=== PATIENT | male | born 1960 | race Caucasian/White ===

== ENCOUNTER 2019-03-17 09:21 | Inpatient (IN) | payer MEDICARE ==
[~2019-03-17] VITALS: Ht 182.9 cm; Wt 75.5 kg
[~2019-03-17 09:21] MED LIST: CELEXA20 MG PO; CIPRO500 MG PO; COMBIVENT RESPIM4 GM INH; HYDROCODON-ACE1 EAC7 PO; HYDROCODONE-APA1 TAB PO; LIBRIUM25 MG PO; LISINOPRIL10 MG PO; MUCINEX600 MG PO; NAPROSYN500 MG PO; PERFOROMIS20 MCG/21 INH; PULMICORT0.5 MG/21 NEB; RISPERDAL1 MG PO; SPIRIVA18 MCG; THERMOTABS 1 GM1 GM PO; TUDORZA PRESS400 MCG INH; ULTRAM50 MG PO; VITAMIN B-1100 M1 PO; XOPENEX 1.1.25 MG/3 UPD
[2019-03-17 10:24] LABS: ALBUMIN 3.4 g/dL (3.4-5.0); ALKALINE PHOSPHATASE 83 U/L (46-116); ALT (SGPT) 15 U/L (10-68); BILIRUBIN - TOTAL 0.92 mg/dL (0.2-1.3); CALC OSMOLALITY 281 mosm/kg (275-300); CALCIUM 8.8 mg/dL (8.5-10.1); CARBON DIOXIDE 32.4 mmol/L (21.0-32.0); CHLORIDE - SERUM 103 mmol/L (98-107); CREATININE - SERUM 0.9 mg/dL (0.6-1.3); POTASSIUM - SERUM 3.3 mmol/L (3.5-5.1); PROTEIN - SERUM 6.9 g/dL (6.4-8.2); SODIUM 141 mmol/L (136-145); UREA NITROGEN 14 mg/dL (7-18); eGFR NON AFRICAN AMERICAN > 90 mL/min (90-120)
[2019-03-17 10:25] LABS: GLUCOSE 98 mg/dL (74-106)
[2019-03-17 10:28] LABS: AMYLASE - SERUM 43 U/L (25-115); LIPASE 91 U/L (73-393); TROPONIN-I < 0.017 ng/mL (0.000-0.060)
[2019-03-17 10:30] LABS: HEMATOCRIT 45.9 % (42.0-54.0); HEMOGLOBIN 15.8 g/dL (13.5-17.5); LYMPHOCYTES 15.8 % (15-50); MCH 28.6 pg (26.0-34.0); MCHC 34.4 g/dL (31.0-37.0); MCV 83.2 fL (80.0-100.0); MEAN PLATELET VOLUME 8.8 fL (7.4-10.4); NEUTROPHILS 77.2 % (40-80); PLATELET COUNT 189 10x3/uL (130-400); RBC 5.52 10x6/uL (4.20-6.10); RDW 13.3 % (11.5-14.5); WBC 11.8 10x3/uL (4.8-10.8)
[2019-03-17 11:00] VITALS: BP 109/64
[2019-03-17 11:31] LABS: INR 1.13 (0.85-1.17)
[2019-03-17 12:00] VITALS: BP 110/67
[2019-03-17 12:19] LABS: APPEARANCE CLEAR (CLEAR); BILIRUBIN NEGATIVE (NEGATIVE); COLOR YELLOW (YELLOW); GLUCOSE NEGATIVE (NEGATIVE); KETONE NEGATIVE (NEGATIVE); NITRITE NEGATIVE (NEGATIVE); PROTEIN NEGATIVE (NEGATIVE); UROBILINOGEN NORMAL (NORMAL)
[2019-03-17 13:00] VITALS: BP 108/65
[2019-03-17 14:00] VITALS: BP 106/63
--- NOTE | 2019-03-17 16:00 | NUR ---
PT RECIEVED VIA WHEELCHAIR. ALERT AND ORIENTED. NO DISTRESS NOTED. VSS AT THIS TIME. WILL CONTINUE TO MONITOR.
[2019-03-17 17:19] VITALS: BP 109/80; BMI 22.7
--- NOTE | 2019-03-17 20:07 | NUR ---
REPORT RECIEVED. PT UP ABLIB IN HALLWAY. NO S/S OF DISTRESS. BREATHING EVEN AND UNLABORED. CALL LIGHT WITHIN REACH. BED IN LOWEST POSTION. WILL CONT WITH POC.
[2019-03-17 20:32] VITALS: BP 116/95
--- NOTE | 2019-03-18 00:30 | NUR ---
PT UP IN HALLWAY WALKING. NO S/S OF DISTRESS. BREATHING EVEN AND UNLABORED. PT DENIES ANY NEEDS AT THIS TIME. TELEMETRY PLACED AT THIS TIME. PT RUNNING SR @ 86 BPM.
--- NOTE | 2019-03-18 03:32 | NUR ---
PT IS UP WALKING IN HALLWAY. NO S/S OF DISTRESS. BREATHING EVEN AND UNLABORED. PT DENIES ANY NEEDS AT THIS TIME. WILL CONT WITH POC.
[2019-03-18 06:04] VITALS: BP 116/73
--- NOTE | 2019-03-18 06:28 | NUR ---
PT SEMI FOWLERS IN BED. PT RESTING AT THIS TIME. PIV PATENT, NS @ 125ML/HR. NO S/S OF DISTRESS. BREATHING EVEN AND UNLABORED. CALL LIGHT WITHIN REACH. BED IN LOWEST POSITION. WILL CONT WITH POC.
--- NOTE | 2019-03-18 07:13 | NUR ---
PT AMBULATING IN HALLWAY. ALERT AND ORIENTED. RR EVEN AND UNLABORED. WILL CONTINUE TO MONITOR.
[2019-03-18 07:50] VITALS: BP 106/63
--- NOTE | 2019-03-18 09:58 | MORECARE ---
CASE MANAGEMENT DISCHARGE SUMMARY PATIENT: DIANE MARCIAL JR UNIT: [id number] ADM DATE: 03/17/19 AGE: 58 : 56 SEX: M ROOM/BED: D.1211 AUTHOR: TIMMY VERDIN PHYSICIAN: REFERRING PHYSICIAN: ESTEVAN CRAFT MD DATE OF SERVICE: 03/18/19 Discharge Plan Patient Name: DIANE MARCIAL Facility: [facility]:[place] : 1960 Planned Disposition: Home Anticipated Discharge Date: Discharge Date: Expected LOS: Initial Reviewer: [email or web address] Initial Review Date: 03/18/2019 Generated: 03/18/19 10:57 am Patient Name: DIANE MARCIAL Page [id number] at 0958 All edits/amendments must be made on the electronic document DICTATION DATE: 03/18/19956 COMMUNITY DIRECTOR: BOB 03/18/1959 RPT#: [id number] DC DATE: STATUS: ADM IN [facility] [address] [place] [address] END OF REPORT
--- NOTE | 2019-03-18 10:00 | NUR ---
I have reviewed this patient and I concur with the Shift Assessment completed by the Licensed Practical Nurse today this shift.
--- NOTE | 2019-03-18 10:05 | MORECARE ---
CASE MANAGEMENT DISCHARGE SUMMARY PATIENT: DIANE MARCIAL JR UNIT: [id number] ADM DATE: 03/17/19 AGE: 58 : 56 SEX: M ROOM/BED: D.1211 AUTHOR: LAMBERT,DOC PHYSICIAN: REFERRING PHYSICIAN: ESTEVAN CRAFT MD DATE OF SERVICE: 03/18/19 Discharge Plan Patient Name: DIANE MARCIAL Facility: [facility]:[place] : 1960 Planned Disposition: Home Anticipated Discharge Date: Discharge Date: Expected LOS: Initial Reviewer: [email or web address] Initial Review Date: 03/18/2019 Generated: 03/18/19 11:05 am Comments DCP- Discharge Planning Updated by [email or web address]: Jocelyn Mcwilliams on 03/18/19 9:[address] Patient Name: DIANE MARCIAL Admission Status: ER Accout number: [id number] Admission Date: 03-17-2019 : 1960 Admission Diagnosis: Attending: PHYLLIS CRAFT Current LOS: 1 Anticipated DC Date: Planned Disposition: Home Primary Insurance: MEDICARE A & B Discharge Planning Comments: CM met with patient to complete initial dc planning assessment. CM educated patient on the CM role and verbal consent given by patient to complete assessment. CM verified patient's address, phone number, and emergency contact phone numbers. Patient lives at home alone and reports he is independent in his care. At discharge patient plans to return home and feels this is a safe discharge. CM discussed availability of home health, rehab services, and medical equipment. Patient denied known discharge needs at this time.. . CM will continue to follow and will assist as needed with dc plans/needs. Flat Hammerer: Jocelyn Mcwilliams DCPIA - Discharge Planning Initial Assessment Updated by [email or web address]: Jocelyn Mcwilliams on 03/18/19 10:02 am * Is the patient Alert and Oriented? Yes * How many steps to enter\exit or inside your home? * PCP dulce * Pharmacy [facility] * Preadmission Environment Home with Family * ADLs Independent * Verbal permission to speak to the caregivers and representatives has been obtained from the patient. N/A * Additional services required to return to the preadmission environment? No * Can the patient safely return to the preadmission environment? Yes * Has this patient been hospitalized within the prior 30 days at any hospital? No Last DP export: 03/18/19 8:58 a Patient Name: DIANE MARCIAL Page [id number] at 1005 All edits/amendments must be made on the electronic document DICTATION DATE: 03/18/19 1005 RAG CUTTING MACHINE TENDER: BOB 03/18/19 1005 RPT#: [id number] DC DATE: STATUS: ADM IN [facility] [address] [place] [address] END OF REPORT
[2019-03-18 11:30] VITALS: BP 125/77
[2019-03-18 13:32] LABS: HEMATOCRIT 43.7 % (42.0-54.0); HEMOGLOBIN 15.2 g/dL (13.5-17.5)
--- NOTE | 2019-03-18 13:46 | NUR ---
PT AMBULATING HALLWAY. DENIES NEEDS OR PAIN AT THIS TIME. RR EVEN AND UNLABORED.
[2019-03-18 14:11] VITALS: Ht 182.9 cm; Wt 75.5 kg
--- NOTE | 2019-03-18 19:12 | NUR ---
REPORT REC'D. PT SUPINE IN BED RESTING. NO S/S OF DISTRESS. BREATHING EVEN AND UNLABORED. PIV PATENT AND INTACT RT AC SL AT THIS TIME. PT DENIES ANY NEEDS AT THIS TIME. CALL LIGHT WITHIN REACH. BED IN LOWEST POSITION. WILL CONT WITH POC.
[2019-03-18 19:30] VITALS: BP 116/74
[2019-03-19] VITALS: BP 99/61
[2019-03-19 04:43] VITALS: BP 144/67
--- NOTE | 2019-03-19 06:23 | NUR ---
PT AWAKE SITTING IN BED. NO S/S OF DISTRESS. BREATHING EVEN AND UNLABORED. PIV PATENT AND INTACTED. NS @ 125. PT DENIES ANY NEEDS AT THIS TIME. CALL LIGHT WITHIN REACH. BED IN LOWEST POSITION. WILL CONT POC.
--- NOTE | 2019-03-19 07:22 | NUR ---
PT RESTING, EYES CLOSED. RR EVEN AND UNLABORED. NO DISTRESS NOTED. WILL CONTINUE TO MONITOR.
[2019-03-19 10:31] LABS: BASOPHILS 0.1 % (0-2); EOSINOPHILS 5.9 % (0-7); HEMATOCRIT 43.2 % (42.0-54.0); HEMOGLOBIN 14.9 g/dL (13.5-17.5); IMMATURE GRANULOCYTES 0.1 % (0-5); LYMPHOCYTES 18.1 % (15-50); MCHC 34.5 g/dL (31.0-37.0); MONOCYTES 8.6 % (2-11); NEUTROPHILS 67.2 % (40-80); PLATELET COUNT 161 10x3/uL (130-400); RBC 5.14 10x6/uL (4.20-6.10); RDW 13.5 % (11.5-14.5); WBC 8.5 10x3/uL (4.8-10.8)
[2019-03-19 10:46] LABS: CALC OSMOLALITY 278 mosm/kg (275-300); CARBON DIOXIDE 32.2 mmol/L (21.0-32.0); CHLORIDE - SERUM 105 mmol/L (98-107); CREATININE - SERUM 0.9 mg/dL (0.6-1.3); GLUCOSE 89 mg/dL (74-106); POTASSIUM - SERUM 3.7 mmol/L (3.5-5.1); SODIUM 142 mmol/L (136-145); UREA NITROGEN 4 mg/dL (7-18); eGFR NON AFRICAN AMERICAN > 90 mL/min (90-120)
[2019-03-19 11:36] VITALS: BP 112/75
[2019-03-19] MEDS ORDERED: LEVAQUIN750 MG PO (15:34)
[2019-03-19] MEDS ORDERED: FLAGYL500 MG PO (15:35)
[2019-03-19] MEDS ORDERED: MIRALAX17 GM PO (15:36)
[2019-03-19] MEDS ORDERED: FLORAJEN3 CAPS460 MG PO (15:36)
--- NOTE | 2019-03-19 16:39 | NUR ---
IV INFILTRATED. D/C WITH CATHETER TIP INTACT. DRESSING CDI
--- NOTE | 2019-03-19 17:28 | NUR ---
D/C INSTRUCTONS REVIEWED WITH PT. VERBALIZES UNDERSTANDING AND NO FURTHER QUESTIONS ASKED. PT WAITING ON RIDE. TELEMETRY REMOVED AND SENT BACK TO MONITORS.
--- NOTE | 2019-03-19 18:25 | NUR ---
PT D/C PER PERSONAL VEHICHLE VIA WHEELCHAIR. ALL BELONGINGS SENT WITH PT. MEDICATIONS WILL BE SENT TO PT PREFERED PHARMACY IN AM. TELEMETRY REMOVED AND SENT TO MONITORS.
--- NOTE | 2019-03-19 18:32 | MORECARE ---
CASE MANAGEMENT DISCHARGE SUMMARY PATIENT: DIANE MARCIAL JR UNIT: [id number] ADM DATE: 03/17/19 AGE: 58 : 56 SEX: M ROOM/BED: D.1211 AUTHOR: LAMBERT,DOC PHYSICIAN: REFERRING PHYSICIAN: ESTEVAN CRAFT MD DATE OF SERVICE: 03/19/19 Discharge Plan Patient Name: DIANE MARCIAL Facility: [facility]:[place] : 1960 Planned Disposition: Home Anticipated Discharge Date: Discharge Date: 03/19/2019 Expected LOS: Initial Reviewer: [email or web address] Initial Review Date: 03/18/2019 Generated: 03/19/19 7:32 pm Comments DCP- Discharge Planning Updated by [id number]: Jocelyn Mcwilliams on 03/18/19 9:[address] Patient Name: DIANE MARCIAL Admission Status: ER Accout number: [id number] Admission Date: 03-17-2019 : 1960 Admission Diagnosis: Attending: PHYLLIS CRAFT Current LOS: 1 Anticipated DC Date: Planned Disposition: Home Primary Insurance: MEDICARE A & B Discharge Planning Comments: CM met with patient to complete initial dc planning assessment. CM educated patient on the CM role and verbal consent given by patient to complete assessment. CM verified patient's address, phone number, and emergency contact phone numbers. Patient lives at home alone and reports he is independent in his care. At discharge patient plans to return home and feels this is a safe discharge. CM discussed availability of home health, rehab services, and medical equipment. Patient denied known discharge needs at this time.. . CM will continue to follow and will assist as needed with dc plans/needs. Medical Technician Assistant: Jocelyn Mcwilliams DCPIA - Discharge Planning Initial Assessment Updated by [email or web address]: Jocelyn Mcwilliams on 03/18/19 10:02 am * Is the patient Alert and Oriented? Yes * How many steps to enter\exit or inside your home? * PCP udlce * Pharmacy [facility] * Preadmission Environment Home with Family * ADLs Independent * Verbal permission to speak to the caregivers and representatives has been obtained from the patient. N/A * Additional services required to return to the preadmission environment? No * Can the patient safely return to the preadmission environment? Yes * Has this patient been hospitalized within the prior 30 days at any hospital? No Last DP export: 03/18/19 9:05 a Patient Name: DIANE MARCIAL Page [id number] at 1832 All edits/amendments must be made on the electronic document DICTATION DATE: 03/19/191831 GLAZE SUPERVISOR: BOB [birth year]191831 RPT#: [id number] DC DATE:03/19/19 STATUS: DIS IN [facility] [address] [place] [address] END OF REPORT
== END 2019-03-19 18:14 | disposition home or self-care (01) | DRG 392 ==
LOC: D.ER 09:21 → D.M3 15:03
PROVIDERS: Family Medicine; ADMIT Emergency Medicine; ATTEND Emergency Medicine
DX: K59.00 Constipation, unspecified (principal); J43.9 Emphysema, unspecified; F32.9 Major depressive disorder, single episode, unspecified; F20.9 Schizophrenia, unspecified; F41.9 Anxiety disorder, unspecified; G89.29 Other chronic pain; M54.9 Dorsalgia, unspecified; R19.5 Other fecal abnormalities; K52.9 Noninfective gastroenteritis and colitis, unspecified; K62.89 Other specified diseases of anus and rectum

== ENCOUNTER 2019-04-03 17:54 | Inpatient (IN) | payer MEDICARE, MEDICAID ==
[~2019-04-03] VITALS: Ht 182.9 cm; Wt 74.8 kg
[~2019-04-03 17:54] MED LIST changes: +FLAGYL500 MG PO; +FLORAJEN3 CAPS460 MG PO; +LEVAQUIN750 MG PO; +MIRALAX17 GM PO
--- NOTE | 2019-04-03 19:02 | NUR ---
REPORT GIVEN TO SANCHO Daniels RN, AT THIS TIME.
[2019-04-03 19:12] LABS: BASOPHILS 0.1 % (0-2); EOSINOPHILS 2.1 % (0-7); HEMATOCRIT 45.3 % (42.0-54.0); HEMOGLOBIN 15.8 g/dL (13.5-17.5); IMMATURE GRANULOCYTES 0.3 % (0-5); LYMPHOCYTES 13.5 % (15-50); MCH 28.8 pg (26.0-34.0); MCHC 34.9 g/dL (31.0-37.0); MCV 82.5 fL (80.0-100.0); MEAN PLATELET VOLUME 9.3 fL (7.4-10.4); MONOCYTES 11.4 % (2-11); NEUTROPHILS 72.6 % (40-80); PLATELET COUNT 167 10x3/uL (130-400); RBC 5.49 10x6/uL (4.20-6.10); RDW 14.4 % (11.5-14.5); WBC 15.7 10x3/uL (4.8-10.8)
[2019-04-03 19:18] VITALS: BP 97/54
[2019-04-03 19:45] LABS: ALBUMIN 3.3 g/dL (3.4-5.0); ALKALINE PHOSPHATASE 64 U/L (46-116); ALT (SGPT) 11 U/L (10-68); BILIRUBIN - TOTAL 0.84 mg/dL (0.2-1.3); CALC OSMOLALITY 277 mosm/kg (275-300); CALCIUM 8.9 mg/dL (8.5-10.1); CARBON DIOXIDE 28.1 mmol/L (21.0-32.0); CHLORIDE - SERUM 100 mmol/L (98-107); CREATININE - SERUM 0.8 mg/dL (0.6-1.3); GLUCOSE 84 mg/dL (74-106); PROTEIN - SERUM 6.3 g/dL (6.4-8.2); SODIUM 139 mmol/L (136-145); UREA NITROGEN 14 mg/dL (7-18); eGFR NON AFRICAN AMERICAN > 90 mL/min (90-120)
[2019-04-03 21:24] VITALS: BP 110/67
--- NOTE | 2019-04-03 22:05 | NUR ---
ZOSYN INFUSION COMPLETE AT THIS TIME.
[2019-04-03 23:34] VITALS: BP 103/66
--- NOTE | 2019-04-04 00:46 | NUR ---
VANC INFUSION COMPLETE AT THIS TIME.
[2019-04-04 01:49] VITALS: BP 94/50; BMI 22.4
[2019-04-04 04:00] VITALS: BP 108/65
[2019-04-04 05:10] LABS: BASOPHILS 0.2 % (0-2); EOSINOPHILS 4.7 % (0-7); HEMATOCRIT 41.9 % (42.0-54.0); HEMOGLOBIN 14.7 g/dL (13.5-17.5); IMMATURE GRANULOCYTES 0.2 % (0-5); LYMPHOCYTES 15.4 % (15-50); MCH 29.3 pg (26.0-34.0); MCHC 35.1 g/dL (31.0-37.0); MCV 83.6 fL (80.0-100.0); MEAN PLATELET VOLUME 9.4 fL (7.4-10.4); MONOCYTES 12.8 % (2-11); NEUTROPHILS 66.7 % (40-80); PLATELET COUNT 179 10x3/uL (130-400); RBC 5.01 10x6/uL (4.20-6.10); RDW 14.5 % (11.5-14.5); WBC 11.6 10x3/uL (4.8-10.8)
[2019-04-04 05:25] LABS: ALBUMIN 2.5 g/dL (3.4-5.0); ALKALINE PHOSPHATASE 53 U/L (46-116); ALT (SGPT) 10 U/L (10-68); BILIRUBIN - TOTAL 0.71 mg/dL (0.2-1.3); CALC OSMOLALITY 274 mosm/kg (275-300); CALCIUM 8.5 mg/dL (8.5-10.1); CARBON DIOXIDE 28.4 mmol/L (21.0-32.0); CHLORIDE - SERUM 103 mmol/L (98-107); CREATININE - SERUM 0.8 mg/dL (0.6-1.3); GLUCOSE 87 mg/dL (74-106); POTASSIUM - SERUM 3.5 mmol/L (3.5-5.1); PROTEIN - SERUM 5.8 g/dL (6.4-8.2); SODIUM 138 mmol/L (136-145); UREA NITROGEN 13 mg/dL (7-18); eGFR NON AFRICAN AMERICAN > 90 mL/min (90-120)
--- NOTE | 2019-04-04 06:44 | NUR ---
ENTERED PATIENTS ROOM AND PATIENT SITTING ON EDGE OF THE BED AND ACTING LIKE HE WAS GETTING UPSET. PATIENT PULLED OFF TELEMETRY LEADS AND REFUSED TO PUT BACK ON. PT BECOMING NON COMPLIANT AND SEEMS TO BE GETTING MORE AND MORE ANXIOUS.
--- NOTE | 2019-04-04 07:10 | NUR ---
PATIENT RECIEVED FROM PREVIOUS SHIFT RESTING IN BED. ADMITTED FOR [facility] WITH I&D SCHEDULED FOR TODAY. PATIENT IS NPO FOR PROCEDURE. MILD REDNESS AND EDEMA TO GENITAL AREAS. NO OPEN AREAS AT THIS TIME.
[2019-04-04 08:55] VITALS: BP 93/47
[2019-04-04 12:00] VITALS: BP 98/62
[2019-04-04 13:23] VITALS: Ht 182.9 cm; Wt 74.8 kg
[2019-04-04 15:07] VITALS: BP 102/52
--- NOTE | 2019-04-04 15:51 | NUR ---
PATIENT RETURNED FROM OR PROCEDURE, I&D RIGHT BUTTOCK. DRESSING C/D/I. 4MG MORPHINE GIVEN FOR PAIN.
--- NOTE | 2019-04-04 19:15 | NUR ---
RECEIVED CARE FROM DAY NURSE. LYING IN BED ON SIDE. EYES CLOSED. RESP EVEN AND UNLABORED. CALL LIGHT AT SIDE. IV INFUSING PER ORDER TO PATENT LEFT FA.
[2019-04-04 20:00] VITALS: BP 93/55
[2019-04-05] VITALS: BP 92/61
--- NOTE | 2019-04-05 03:00 | NUR ---
I have reviewed this patient and I concur with the Shift Assessment completed by the Licensed Practical Nurse today this shift.
[2019-04-05 04:00] VITALS: BP 96/55
[2019-04-05] MEDS ORDERED: VALIUM10 MG PO (05:28)
[2019-04-05] MEDS ORDERED: FLAGYL500 MG PO (05:49)
[2019-04-05] MEDS ORDERED: FOLIC ACID1 MG PO (05:50)
[2019-04-05] MEDS ORDERED: PREDNISONE10 MG PO (05:50)
[2019-04-05] MEDS ORDERED: PEPCID AC20 MG PO (05:51)
[2019-04-05] MEDS ORDERED: LINZESS145 MCG PO (05:51)
[2019-04-05] MEDS ORDERED: GEMFIBROZIL600 MG PO (05:51)
[2019-04-05] MEDS ORDERED: MOBIC7.5 MG PO (05:52)
[2019-04-05 06:46] LABS: BASOPHILS 0.1 % (0-2); EOSINOPHILS 0 % (0-7); HEMOGLOBIN 13.7 g/dL (13.5-17.5); IMMATURE GRANULOCYTES 0.2 % (0-5); LYMPHOCYTES 7.4 % (15-50); MCH 28.7 pg (26.0-34.0); MCHC 34.3 g/dL (31.0-37.0); MCV 83.9 fL (80.0-100.0); MEAN PLATELET VOLUME 9.2 fL (7.4-10.4); MONOCYTES 4.9 % (2-11); NEUTROPHILS 87.4 % (40-80); PLATELET COUNT 186 10x3/uL (130-400); RBC 4.77 10x6/uL (4.20-6.10); RDW 14.1 % (11.5-14.5); WBC 10.7 10x3/uL (4.8-10.8)
[2019-04-05 06:54] LABS: ANION GAP 11.4 mmol/L (8-16); CALCIUM 8.4 mg/dL (8.5-10.1); CARBON DIOXIDE 29.6 mmol/L (21.0-32.0)
[2019-04-05 06:58] LABS: CREATININE - SERUM 1.1 mg/dL (0.6-1.3)
--- NOTE | 2019-04-05 07:00 | NUR ---
PATIENT RECIEVED FROM PREVIOUS SHIFT RESTING IN BED WITH EYES CLOSED, NO DISTRESS, NO NEEDS VICED, DRESSING INTACT TO GROIN. CL IN REACH
[2019-04-05 08:37] VITALS: BP 99/69
--- NOTE | 2019-04-05 09:01 | NUR ---
DRESSING AND PACKING REMOVED FROM GROIN AREA X 2 OPEN INCISIONS APPROX 2CM IN LENGTH. REPACKED WITH KERLIX DAMP WITH NS, COVERED WITH DRY 4X4 AND SECURED WITH TAPE. PATIENT TOLERATED WELL.
[2019-04-05 13:37] VITALS: BP 100/42
--- NOTE | 2019-04-05 19:15 | NUR ---
RECEIVED CARE FROM DAY NURSE. LYING IN BED ON SIDE. NO NEEDS VOICED AT THIS TIME. CALL LIGHT AT SIDE. IV INFUSING PER ORDER TO PATENT LEFT FA. NO DISTRESS NOTED.
[2019-04-05 20:00] VITALS: BP 104/59
--- NOTE | 2019-04-06 01:00 | NUR ---
PACKING TO INNER BUTTOCK DISLOADGED. PREMEDICATED WITH MORPHINE 4MG IV. REPACKED PER ORDERS. TOLERATED WELL WITH REPORTS OF MINIMAL PAIN.
--- NOTE | 2019-04-06 03:11 | NUR ---
I have reviewed this patient and I concur with the Shift Assessment completed by the Licensed Practical Nurse today this shift.
[2019-04-06 04:00] VITALS: BP 94/59
--- NOTE | 2019-04-06 07:05 | NUR ---
PATIENT RECIEVED FROM PREVIOUS SHIFT RESTING IN BED WITH EYES CLOSED, NO NEEDS VOICED AT THIS TIME.
[2019-04-06 08:32] VITALS: BP 117/80
--- NOTE | 2019-04-06 13:05 | NUR ---
DRESSING CHANGED TO RIGHT GROIN. BOTH OPEN INCISIONS PACKED WITH KERLIX DAMP WITH NS, COVERED WITH DRY 4X4 AND SECURED WITH TAPE. PATIENT TOLERATED WELL
[2019-04-06 13:28] VITALS: BP 127/79
[2019-04-06 16:56] VITALS: BP 117/49
[2019-04-06 20:00] VITALS: BP 97/57
[2019-04-07 04:00] VITALS: BP 114/63
[2019-04-07 06:10] LABS: BASOPHILS 0.3 % (0-2); EOSINOPHILS 3.3 % (0-7); HEMATOCRIT 47.2 % (42.0-54.0); HEMOGLOBIN 15.9 g/dL (13.5-17.5); IMMATURE GRANULOCYTES 0.4 % (0-5); LYMPHOCYTES 30.1 % (15-50); MCH 28.6 pg (26.0-34.0); MCHC 33.7 g/dL (31.0-37.0); MONOCYTES 8.6 % (2-11); NEUTROPHILS 57.3 % (40-80); RBC 5.55 10x6/uL (4.20-6.10); RDW 14.1 % (11.5-14.5)
[2019-04-07 06:12] LABS: PLATELET COUNT 242 10x3/uL (130-400); WBC 7.9 10x3/uL (4.8-10.8)
[2019-04-07 06:22] LABS: CALC OSMOLALITY 287 mosm/kg (275-300); CALCIUM 8.3 mg/dL (8.5-10.1); CARBON DIOXIDE 27.6 mmol/L (21.0-32.0); CHLORIDE - SERUM 108 mmol/L (98-107); GLUCOSE 111 mg/dL (74-106); POTASSIUM - SERUM 3.9 mmol/L (3.5-5.1); SODIUM 144 mmol/L (136-145); UREA NITROGEN 12 mg/dL (7-18); eGFR NON AFRICAN AMERICAN 81 mL/min (90-120)
[2019-04-07 08:41] VITALS: BP 122/72
[2019-04-07 14:01] VITALS: BP 120/74
--- NOTE | 2019-04-07 14:34 | MORECARE ---
CASE MANAGEMENT DISCHARGE SUMMARY PATIENT: DIANE MARCIAL JR UNIT: [id number] ADM DATE: 04/03/19 AGE: 58 : 56 SEX: M ROOM/BED: D.2234 AUTHOR: TIMMY VERDIN PHYSICIAN: REFERRING PHYSICIAN: HALIMA PATTERSON MD DATE OF SERVICE: 04/07/19 Discharge Plan Patient Name: DIANE MARCIAL Facility: [facility]:[place] : 1960 Planned Disposition: Anticipated Discharge Date: Discharge Date: Expected LOS: Initial Reviewer: [email or web address] Initial Review Date: 04/07/2019 Generated: 04/07/19 3:34 pm External Providers External Provider: [facility] Next Contact Date: Service Request Date: Service Type: Resolution: Reviewer: Comments: Coverage Notice Reviewer: [email or web address] Charli Barillas Notice Issued Date-Time: 04/07/2019 12:42 Notice Type: Patient Choice Letter Notice Delivered To: Patient Relationship to Patient: Facilities Project Manager Name: Delivery Method: HAND - Hand Delivered Yesica Days: Prior Verbal Notification: Recipient Understood Notice: Yes Recipient Signature: Yes Med Rec Note Co-signed by Attending: Coverage Notice Comment: SHAHID ANY SNF THAT ACCEPTS HIS INURANCE. Patient Name: DIANE MARCIAL Page 26024 at 1434 All edits/amendments must be made on the electronic document DICTATION DATE: 04/07/19 1434 BODILY INJURY ADJUSTER: BOB 04/07/19 1434 RPT#: [id number] [place] DATE: STATUS: ADM IN [facility] [address] [place] [address] END OF REPORT
--- NOTE | 2019-04-07 14:43 | MORECARE ---
CASE MANAGEMENT DISCHARGE SUMMARY PATIENT: DIANE MARCIAL JR UNIT: [id number] ADM DATE: 04/03/19 AGE: 58 : 56 SEX: M ROOM/BED: D.2234 AUTHOR: LAMBERT,DOC PHYSICIAN: REFERRING PHYSICIAN: HALIMA PATTERSON MD DATE OF SERVICE: 04/07/19 Discharge Plan Patient Name: DIANE MARCIAL Facility: [facility]:[place] : 1960 Planned Disposition: Anticipated Discharge Date: Discharge Date: Expected LOS: Initial Reviewer: [email or web address] Initial Review Date: 04/07/2019 Generated: 04/07/19 3:43 pm Comments DCP- Discharge Planning Updated by [id number]: Mary Barillas on 04/07/19 1:[address] Patient Name: DIANE MARCIAL Admission Status: ER Accout number: [id number] Admission Date: 04-03-2019 : 1960 Admission Diagnosis:CUTANEOUS ABSCESS OF BUTTOCK Attending: HALIMA PATTERSON Current LOS: 4 Anticipated DC Date: Planned Disposition: Primary Insurance: WE[employer] MEDICARE ADV Discharge Planning Comments: CM MET WITH PATIENT ABOUT DC PLANNING/NEEDS. DR PATTERSON RECOMMENDS SNF FOR WOUND CARE AND IV ANTIBIOTICS. REFERRAL SENT TO [facility]. WAITING FOR CALL BACK. ORDER FOR IV MEDS PLACED ON CHART. SHAHID SIGNED FOR THE [facility]. CM TO FOLLOW AND ASSIST. Motor Tune Up Specialist: Mary Barillas DCPIA - Discharge Planning Initial Assessment Updated by [id number]: Mary Barillas on 04/07/19 2:34 pm * Is the patient Alert and Oriented? Yes * ADLs Independent * Other Equipment 02 AND NEBS * Community resources currently utilized None * Additional services required to return to the preadmission environment? Yes * Can the patient safely return to the preadmission environment? No * Has this patient been hospitalized within the prior 30 days at any hospital? No Coverage Notice Reviewer: [id number] - Mary Barillas Notice Issued Date-Time: 04/07/2019 12:42 Notice Type: Patient Choice Letter Notice Delivered To: Patient Relationship to Patient: Perianesthesia Nurse Name: Delivery Method: HAND - Hand Delivered Yesica Days: Prior Verbal Notification: Recipient Understood Notice: Yes Recipient Signature: Yes Med Rec Note Co-signed by Attending: Coverage Notice Comment: SHAHID ANY SNF THAT ACCEPTS HIS INURANCE. Last DP export: 04/07/19 1:34 p Patient Name: DIANE MARCIAL Page 51844 at 1443 All edits/amendments must be made on the electronic document DICTATION DATE: 04/07/19 1443 EXTRUSION TECHNICIAN: BOB 04/07/19 1443 RPT#: [id number] DC DATE: STATUS: ADM IN [facility] [address] [place] [address] END OF REPORT
--- NOTE | 2019-04-07 15:37 | MORECARE ---
CASE MANAGEMENT DISCHARGE SUMMARY PATIENT: DAINE MARCIAL JR UNIT: [id number] ADM DATE: 04/03/19 AGE: 58 : 56 SEX: M ROOM/BED: D.2234 AUTHOR: LAMBERTDOC PHYSICIAN: REFERRING PHYSICIAN: HALIMA PATTERSON MD DATE OF SERVICE: 04/07/19 Discharge Plan Patient Name: DIANE MARCIAL Facility: [facility]:[place] : 1960 Planned Disposition: Anticipated Discharge Date: Discharge Date: Expected LOS: Initial Reviewer: [email or web address] Initial Review Date: 04/07/2019 Generated: 04/07/19 4:36 pm Comments DCP- Discharge Planning Updated by [email or web address]: Mary Barillas on 04/07/19 1:[address] Patient Name: DIANE MARCIAL Admission Status: ER Accout number: [id number] Admission Date: 04-03-2019 : 1960 Admission Diagnosis:CUTANEOUS ABSCESS OF BUTTOCK Attending: HALIMA PATTERSON Current LOS: 4 Anticipated DC Date: Planned Disposition: Primary Insurance: WELL[employer] MEDICARE ADV Discharge Planning Comments: CM MET WITH PATIENT ABOUT DC PLANNING/NEEDS. DR PATTERSON RECOMMENDS SNF FOR WOUND CARE AND IV ANTIBIOTICS. REFERRAL SENT TO THE [facility]. WAITING FOR CALL BACK. ORDER FOR IV MEDS PLACED ON CHART. SHAHID SIGNED FOR THE [facility]. CM TO FOLLOW AND ASSIST. Dicer Operator: Mary Barillas DCPIA - Discharge Planning Initial Assessment Updated by [id number]: Mary Barillas on 04/07/19 2:34 pm * Is the patient Alert and Oriented? Yes * ADLs Independent * Other Equipment 02 AND NEBS * Community resources currently utilized None * Additional services required to return to the preadmission environment? Yes * Can the patient safely return to the preadmission environment? No * Has this patient been hospitalized within the prior 30 days at any hospital? No External Providers External Provider: [facility] Next Contact Date: Service Request Date: Service Type: Resolution: Reviewer: Comments: Coverage Notice Reviewer: [email or web address] Charli Barillas Notice Issued Date-Time: 04/07/2019 12:42 Notice Type: Patient Choice Letter Notice Delivered To: Patient Relationship to Patient: Brown Sourer Name: Delivery Method: HAND - Hand Delivered Yesica Days: Prior Verbal Notification: Recipient Understood Notice: Yes Recipient Signature: Yes Med Rec Note Co-signed by Attending: Coverage Notice Comment: SHAHID ANY SNF THAT ACCEPTS HIS INURANCE. Last DP export: 04/07/19 1:43 p Patient Name: DIANE MARCIAL Page [phone] at 1537 All edits/amendments must be made on the electronic document DICTATION DATE: 04/07/19 153 LAND MANAGEMENT SUPERVISOR: BOB 04/07/19 1536 RPT#: [id number] DC DATE: STATUS: ADM IN [facility] [address] [place] [address] END OF REPORT
--- NOTE | 2019-04-07 15:45 | MORECARE ---
CASE MANAGEMENT DISCHARGE SUMMARY PATIENT: DIANE MARCIAL JR UNIT: [id number] ADM DATE: 04/03/19 AGE: 58 : 56 SEX: M ROOM/BED: D.2234 AUTHOR: LAMBERTDOC PHYSICIAN: REFERRING PHYSICIAN: HALIMA PATTERSON MD DATE OF SERVICE: 04/07/19 Discharge Plan Patient Name: DIANE MARCIAL Facility: [facility]:[place] : 1960 Planned Disposition: Anticipated Discharge Date: Discharge Date: Expected LOS: Initial Reviewer: [id number] Initial Review Date: 04/07/2019 Generated: 04/07/19 4:45 pm Comments DCP- Discharge Planning Updated by [email or web address]: Mary Barillas on 04/07/19 2:[address] Patient Name: DIANE MARCIAL Admission Status: ER Accout number: [id number] Admission Date: 04-03-2019 : 1960 Admission Diagnosis:CUTANEOUS ABSCESS OF BUTTOCK Attending: HALIMA PATTERSON Current LOS: 4 Anticipated DC Date: Planned Disposition: Primary Insurance: WELL[employer] MEDICARE ADV Discharge Planning Comments: CM MET WITH PATIENT ABOUT DC PLANNING/NEEDS. DR PATTERSON RECOMMENDS SNF FOR WOUND CARE AND IV ANTIBIOTICS. REFERRAL SENT TO THE [facility]. WAITING FOR CALL BACK. ORDER FOR IV MEDS PLACED ON CHART. SHAHID SIGNED FOR THE [facility]. CM TO FOLLOW AND ASSIST. Hockey Scout: Mary Barillas Appended by Mary Barillas on 04/07/2019 15:36 CDT: TALKED WITH MARGAUX AND HE IS DENIED BY THE [facility]. REFERRAL SENT TO [facility]. WAITING FOR CALL BACK. DCPIA - Discharge Planning Initial Assessment Updated by [email or web address]: Mary Barillas on 04/07/19 2:34 pm * Is the patient Alert and Oriented? Yes * ADLs Independent * Other Equipment 02 AND NEBS * Community resources currently utilized None * Additional services required to return to the preadmission environment? Yes * Can the patient safely return to the preadmission environment? No * Has this patient been hospitalized within the prior 30 days at any hospital? No Coverage Notice Reviewer: [id number] - Mary Barillas Notice Issued Date-Time: 04/07/2019 12:42 Notice Type: Patient Choice Letter Notice Delivered To: Patient Relationship to Patient: Director Franchise Sales Name: Delivery Method: HAND - Hand Delivered Yesica Days: Prior Verbal Notification: Recipient Understood Notice: Yes Recipient Signature: Yes Med Rec Note Co-signed by Attending: Coverage Notice Comment: SHAHID ANY SNF THAT ACCEPTS HIS INURANCE. Last DP export: 04/07/19 2:37 p Patient Name: DIANE MARCIAL Page [id number] at 1545 All edits/amendments must be made on the electronic document DICTATION DATE: 04/07/19 1544 IBM MAINFRAME SYSTEMS PROGRAMMER: BOB 04/07/19 1544 RPT#: [id number] DC DATE: STATUS: ADM IN [facility] [address] [place] [address] END OF REPORT
[2019-04-07 17:15] VITALS: BP 127/75
--- NOTE | 2019-04-07 18:13 | NUR ---
I have reviewed this patient and I concur with the Shift Assessment completed by the Licensed Practical Nurse today this shift.
--- NOTE | 2019-04-07 19:19 | NUR ---
IN BED WITH EYES CLOSED, RESPIRATIONS EVEN AND UNLABORED. IV TO RIGHT FOREARM PATENT WITH FLUIDS RUNNING PER ORDERS. WILL NOTE ANY CHANGE.
[2019-04-07 20:00] VITALS: BP 114/51
[2019-04-08 04:00] VITALS: BP 137/85
--- NOTE | 2019-04-08 05:23 | NUR ---
I have reviewed this patient and I concur with the Shift Assessment completed by the Licensed Practical Nurse today this shift.
--- NOTE | 2019-04-08 07:35 | NUR ---
ALERT AND ORIENTED. RESTING IN BED. C/O PAIN, GAVE MORPHINE FOR PAIN. NO S/S OF ACUTE DISTRESS NOTED. CALL LIGHT IN REACH. WILL CONTINUE TO MONITOR.
--- NOTE | 2019-04-08 08:10 | OP ---
PATIENT NAME: DIANE MARCIAL JR MEDICAL RECORD: [id number] :[birth year] LOCATION:[id number] ADMISSION DATE:04/03/19 SURGEON: HALIMA PATTERSON MD DATE OF OPERATION: 04/04/2019 PREOPERATIVE DIAGNOSES: 1. Right buttock and scrotal abscess. 2. Schizophrenia. 3. Chronic obstructive pulmonary disease. POSTOPERATIVE DIAGNOSES: 1. Right buttock and scrotal abscess. 2. Schizophrenia. 3. Chronic obstructive pulmonary disease. PROCEDURE: I&D of the left buttocks and scrotum. SURGEON: Halima Patterson MD REPORT OF PROCEDURE: The patient was placed in lithotomy position and the perineal and genital region were all prepped and draped in sterile fashion. On the right side of the buttock, there was an area of fluctuance with a scant amount of purulent drainage. A #11 blade was used to make a transverse incision over this and there was a spillage of purulent material, which was cultured. We were able to penetrate into this wound and it did track up towards the patient's scrotum, so a counter incision was made just to the lateral aspect of the right scrotum. It did not appear to penetrate near the testicular region. We irrigated out the whole wound with peroxide and saline solution and then packed both wounds separately with Kerlix dipped in peroxide. We then dressed these with dry gauze and ABD pad. COMPLICATIONS: None. CONDITION: Stable. ANESTHESIA: General endotracheal. BLOOD LOSS: Minimal. TRANSINT:[id number] Voice Confirmation ID: [id number] DOCUMENT ID: [id number] HALIMA PATTERSON MD at 0810 CC: [id number] DICTATION DATE: 04/04/19 1441 ROBOTICS SOFTWARE ENGINEER: 04/04/19 1540 [place] [address]
[2019-04-08 08:59] VITALS: BP 132/77
--- NOTE | 2019-04-08 09:13 | MORECARE ---
CASE MANAGEMENT DISCHARGE SUMMARY PATIENT: DIANE MARCIAL JR UNIT: [id number] ADM DATE: 04/03/19 AGE: 58 : 56 SEX: M ROOM/BED: D.2234 AUTHOR: LAMBERTDOC PHYSICIAN: REFERRING PHYSICIAN: HALIMA PATTERSON MD DATE OF SERVICE: 04/08/19 Discharge Plan Patient Name: DIANE MARCIAL Facility: [facility]:[place] : 1960 Planned Disposition: Anticipated Discharge Date: Discharge Date: Expected LOS: Initial Reviewer: [id number] Initial Review Date: 04/07/2019 Generated: 04/08/19 10:12 am Comments DCP- Discharge Planning Updated by [id number]: Mary Barillas on 04/07/19 2:[address] Patient Name: DIANE MARCIAL Admission Status: ER Accout number: [id number] Admission Date: 04-03-2019 : 1960 Admission Diagnosis:CUTANEOUS ABSCESS OF BUTTOCK Attending: HALIMA PATTERSON Current LOS: 4 Anticipated DC Date: Planned Disposition: Primary Insurance: [facility] MEDICARE ADV Discharge Planning Comments: CM MET WITH PATIENT ABOUT DC PLANNING/NEEDS. DR PATTERSON RECOMMENDS SNF FOR WOUND CARE AND IV ANTIBIOTICS. REFERRAL SENT TO THE [facility]. WAITING FOR CALL BACK. ORDER FOR IV MEDS PLACED ON CHART. SHAHID SIGNED FOR THE [facility]. CM TO FOLLOW AND ASSIST. Senior Supplier Quality Engineer: Mary Barillas Appended by Mary Barillas on 04/07/2019 15:36 CDT: TALKED WITH MARGAUX AND HE IS DENIED BY THE [facility]. REFERRAL SENT TO [facility]. WAITING FOR CALL BACK. DCPIA - Discharge Planning Initial Assessment Updated by [id number]: Mary Barillas on 04/07/19 2:34 pm * Is the patient Alert and Oriented? Yes * ADLs Independent * Other Equipment 02 AND NEBS * Community resources currently utilized None * Additional services required to return to the preadmission environment? Yes * Can the patient safely return to the preadmission environment? No * Has this patient been hospitalized within the prior 30 days at any hospital? No External Providers External Provider: [facility] Next Contact Date: Service Request Date: Service Type: Resolution: Reviewer: Comments: Coverage Notice Reviewer: [id number] - Mary Barillas Notice Issued Date-Time: 04/07/2019 12:42 Notice Type: Patient Choice Letter Notice Delivered To: Patient Relationship to Patient: Career Development Counselor Name: Delivery Method: HAND - Hand Delivered Yesica Days: Prior Verbal Notification: Recipient Understood Notice: Yes Recipient Signature: Yes Med Rec Note Co-signed by Attending: Coverage Notice Comment: SHAHID ANY SNF THAT ACCEPTS HIS INURANCE. Last DP export: 04/07/19 2:45 p Patient Name: DIANE MARCIAL Page [id number] at 0913 All edits/amendments must be made on the electronic document DICTATION DATE: 04/08/19911 KEY FILER: BOB 04/08/19911 RPT#: [id number] DC DATE: STATUS: ADM IN [facility] [address] [place] [address] END OF REPORT
[2019-04-08 13:11] VITALS: BP 133/89
--- NOTE | 2019-04-08 13:45 | NUR ---
CHANGED DRESSING TO RIGHT GROIN/BUTTOCK. DRESSING CAME OFF DURING PATIENT WALKING TO THE RESTROOM. REMOVED THE REST OF THE DRESSING AND PACKING. REPACKED WITH WET 2" KERLEX AND PLACED 4X4 FOLDED IN HALF OVER WOUND. TAPED OVER DRESSING.
--- NOTE | 2019-04-08 14:47 | NUR ---
I have reviewed this patient and I concur with the Shift Assessment completed by the Licensed Practical Nurse today this shift.
--- NOTE | 2019-04-08 15:24 | MORECARE ---
CASE MANAGEMENT DISCHARGE SUMMARY PATIENT: DIANE MARCIAL JR UNIT: [id number] ADM DATE: 04/03/19 AGE: 58 : 56 SEX: M ROOM/BED: D.2234 AUTHOR: LAMBERT,DOC PHYSICIAN: REFERRING PHYSICIAN: HALIMA PATTERSON MD DATE OF SERVICE: 04/08/19 Discharge Plan Patient Name: DIANE MARCIAL Facility: [facility]:[place] : 1960 Planned Disposition: Anticipated Discharge Date: Discharge Date: Expected LOS: Initial Reviewer: [id number] Initial Review Date: 04/07/2019 Generated: 04/08/19 4:24 pm Comments DCP- Discharge Planning Updated by [id number]: Emily Mccall on 04/08/19 2:[address] Per Mary referral sent to [facility], waiting on auth/ safe discharge will attempt to try to call her son to see if patient can come to him after discharge from [facility] [place] [phone] the son's numbers DCP- Discharge Planning Updated by [id number]: Mary Barillas on 04/07/19 2:[address] Patient Name: DIANE MARCIAL Admission Status: ER Accout number: [id number] Admission Date: 04-03-2019 : 1960 Admission Diagnosis:CUTANEOUS ABSCESS OF BUTTOCK Attending: HALIMA PATTERSON Current LOS: 4 Anticipated DC Date: Planned Disposition: Primary Insurance: [facility] MEDICARE ADV Discharge Planning Comments: CM MET WITH PATIENT ABOUT DC PLANNING/NEEDS. DR PATTERSON RECOMMENDS SNF FOR WOUND CARE AND IV ANTIBIOTICS. REFERRAL SENT TO THE [facility]. WAITING FOR CALL BACK. ORDER FOR IV MEDS PLACED ON CHART. SHAHID SIGNED FOR THE [facility]. TO FOLLOW AND ASSIST. Motorboat Mechanic Helper: Mary Barillas Appended by Mary Barillas on 04/07/2019 15:36 CDT: TALKED WITH MARGAUX AND HE IS DENIED BY THE [facility]. REFERRAL SENT TO [facility]. WAITING FOR CALL BACK. DCPIA - Discharge Planning Initial Assessment Updated by [id number]: Mary Barillas on 04/07/19 2:34 pm * Is the patient Alert and Oriented? Yes * ADLs Independent * Other Equipment 02 AND NEBS * Community resources currently utilized None * Additional services required to return to the preadmission environment? Yes * Can the patient safely return to the preadmission environment? No * Has this patient been hospitalized within the prior 30 days at any hospital? No Coverage Notice Reviewer: [id number] Charli Barillas Notice Issued Date-Time: 04/07/2019 12:42 Notice Type: Patient Choice Letter Notice Delivered To: Patient Relationship to Patient: Telecommunications Support Name: Delivery Method: HAND - Hand Delivered Yesica Days: Prior Verbal Notification: Recipient Understood Notice: Yes Recipient Signature: Yes Med Rec Note Co-signed by Attending: Coverage Notice Comment: SHAHID ANY SNF THAT ACCEPTS HIS INURANCE. Last DP export: 04/08/19 8:13 a Patient Name: DIANE MARCIAL Page [phone] at 1524 All edits/amendments must be made on the electronic document DICTATION DATE: 04/08/19 1523 INDOOR LANDSCAPER/GARDENER: BOB 04/08/19 1523 RPT#: [id number] DC DATE: STATUS: ADM IN [facility] [address] [place] [address] END OF REPORT
--- NOTE | 2019-04-08 15:48 | MORECARE ---
CASE MANAGEMENT DISCHARGE SUMMARY PATIENT: DIANE MARCIAL JR UNIT: [id number] ADM DATE: 04/03/19 AGE: 58 : 56 SEX: M ROOM/BED: D.2234 AUTHOR: LAMBERT,DOC PHYSICIAN: REFERRING PHYSICIAN: HALIMA PATTERSON MD DATE OF SERVICE: 04/08/19 Discharge Plan Patient Name: DIANE MARCIAL Facility: [facility]:[place] : 1960 Planned Disposition: Anticipated Discharge Date: Discharge Date: Expected LOS: Initial Reviewer: [id number] Initial Review Date: 04/07/2019 Generated: 04/08/19 4:48 pm Comments DCP- Discharge Planning Updated by [id number]: Emily Mccall on 04/08/19 2:[address] SPOKE WITH ROS MALONEY SON AND HE STATED THAT HE CAN NOT GO BACK TO HIS RENT HOUSE. HE WAS LIVING IN HIS RENT HOUSE, BUT HE IS NOT GOING TO BE ABLE TO WHEN HE IS DISCHARGED. ROS WAS GOING TO TALK TO HIS DAD. CM TO FOLLOW AND ASSIST DCP- Discharge Planning Updated by [id number]: Emily Mccall on 04/08/19 2:[address] Per Mary referral sent to [facility], waiting on auth/ safe discharge will attempt to try to call her son to see if patient can come to him after discharge from [facility] [phone] the son's numbers DCP- Discharge Planning Updated by [id number]: Mary Barillas on 04/07/19 2:[address] Patient Name: DIANE MARCIAL Admission Status: ER Accout number: [id number] Admission Date: 04-03-2019 : 1960 Admission Diagnosis:CUTANEOUS ABSCESS OF BUTTOCK Attending: HALIMA PATTERSON Current LOS: 4 Anticipated DC Date: Planned Disposition: Primary Insurance: [employer] ADV Discharge Planning Comments: CM MET WITH PATIENT ABOUT DC PLANNING/NEEDS. DR PATTERSON RECOMMENDS SNF FOR WOUND CARE AND IV ANTIBIOTICS. REFERRAL SENT TO THE [facility]. WAITING FOR CALL BACK. ORDER FOR IV MEDS PLACED ON CHART. SHAHID SIGNED FOR THE [facility]. CM TO FOLLOW AND ASSIST. Business Account Leader: Mary Barillas Appended by Mary Barillas on 04/07/2019 15:36 CDT: TALKED WITH MARGAUX AND HE IS DENIED BY THE [facility]. REFERRAL SENT TO [facility]. WAITING FOR CALL BACK. DCPIA - Discharge Planning Initial Assessment Updated by [id number]: Maryrosa Barillas on 04/07/19 2:34 pm * Is the patient Alert and Oriented? Yes * ADLs Independent * Other Equipment 02 AND NEBS * Community resources currently utilized None * Additional services required to return to the preadmission environment? Yes * Can the patient safely return to the preadmission environment? No * Has this patient been hospitalized within the prior 30 days at any hospital? No Coverage Notice Reviewer: [id number] - Mary Barillas Notice Issued Date-Time: 04/07/2019 12:42 Notice Type: Patient Choice Letter Notice Delivered To: Patient Relationship to Patient: Ambulance Dispatcher Name: Delivery Method: HAND - Hand Delivered Yesica Days: Prior Verbal Notification: Recipient Understood Notice: Yes Recipient Signature: Yes Med Rec Note Co-signed by Attending: Coverage Notice Comment: SHAHID ANY SNF THAT ACCEPTS HIS INURANCE. Last DP export: 04/08/19 2:24 p Patient Name: DIANE MARCIAL Page [phone] at 1548 All edits/amendments must be made on the electronic document DICTATION DATE: 04/08/191547 TOOL AND DIE SUPERVISOR: BOB 04/08/191547 RPT#: [id number] DC DATE: STATUS: ADM IN [facility] [address] [place] [address] END OF REPORT
--- NOTE | 2019-04-08 19:03 | NUR ---
PT RESTING IN BED, ALERT AND ORIENTED. NO C/O PAIN. NO S/S OF ACUTE DISTRESS NOTED. CALL LIGHT IN REACH. WILL CONTINUE TO MONITOR.
[2019-04-08 20:00] VITALS: BP 134/81
--- NOTE | 2019-04-09 05:17 | NUR ---
PT RESTING IN BED. EYES CLOSED NO SIGNS OF DISTRESS. BREATHING EVEN AND UNLABORED. IV DITE LT UPPER ARM MIDLINE. DRESSING CLEAN DRY AND INTACT. NO SIGNS OF INFECTION. BOWEL SOUNDS ACTIVE. GROIN DRESSING CLEAN DRY AND INTACT. WILL CONTINUE PLAN OF CARE CALL LIGHT IN REACH. BED LOWERED AND LOCKED. BED RAILS UP X2.
--- NOTE | 2019-04-09 06:20 | NUR ---
PT IS WITHOUT DISTRESS.CALL LIGHT IN REACH
--- NOTE | 2019-04-09 07:40 | NUR ---
PT RESTING IN BED WITH EYES OPEN. ROLAN STEVENSON AT THE BEDSIDE PLACING PT BACK ON CPM MACHINE. GOWN CHANGED. IV LOCATED TO RIGHT AC RUNNING 1/2NS @ 50ML. RCVING 3L VIA NC. ALERT AND ORIENTED X 4. ASKING FOR A SPRITE BUT DENIES ANY FURTHER NEEDS AT THIS TIME. BED LOW, CALL LIGHT IN REACH, RAILS UP X 2.
--- NOTE | 2019-04-09 07:45 | NUR ---
PT RESTING IN BED WITH EYES OPEN. ALERT AND ORIENTED X4, ON THE PHONE TALKING TO FRIEND. REQUESTING COFFEE AND ICE CREAM BUT DENIES ANY FURTHER NEEDS. MIDLINE LOCATED TO LEFT UPPER ARM RUNNING NS AT 50ML. BREATHING EVEN AND NONLABORED, NO S/S OF DISTRESS NOTED. BED LOW, CALL LIGHT IN REACH, RAILS UP X 2. WILL CONTINUE TO MONITOR.
[2019-04-09 09:11] VITALS: BP 123/80
--- NOTE | 2019-04-09 10:07 | MORECARE ---
CASE MANAGEMENT DISCHARGE SUMMARY PATIENT: DIANE MARCIAL JR UNIT: [id number] ADM DATE: 04/03/19 AGE: 58 : 56 SEX: M ROOM/BED: D.2234 AUTHOR: LAMBERT,DOC PHYSICIAN: REFERRING PHYSICIAN: HALIMA PATTERSON MD DATE OF SERVICE: 04/09/19 Discharge Plan Patient Name: DIANE MARCIAL Facility: [facility]:[place] : 1960 Planned Disposition: Anticipated Discharge Date: Discharge Date: Expected LOS: Initial Reviewer: [id number] Initial Review Date: 04/07/2019 Generated: 04/09/19 11:07 am Comments DCP- Discharge Planning Updated by [id number]: Emily Mccall on 04/08/19 2:[address] SPOKE WITH ROS MALONEY SON AND HE STATED THAT HE CAN NOT GO BACK TO HIS RENT HOUSE. HE WAS LIVING IN HIS RENT HOUSE, BUT HE IS NOT GOING TO BE ABLE TO WHEN HE IS DISCHARGED. ROS WAS GOING TO TALK TO HIS DAD. CM TO FOLLOW AND ASSIST DCP- Discharge Planning Updated by [id number]: Emily Mccall on 04/08/19 2:[address] Per Mary referral sent to [facility], waiting on auth/ safe discharge will attempt to try to call her son to see if patient can come to him after discharge from skilled [phone] the son's numbers DCP- Discharge Planning Updated by [id number]: Mary Barillas on 04/07/19 2:[address] Patient Name: DIANE MARCIAL Admission Status: ER Accout number: [id number] Admission Date: 04-03-2019 : 1960 Admission Diagnosis:CUTANEOUS ABSCESS OF BUTTOCK Attending: HALIMA PATTERSON Current LOS: 4 Anticipated DC Date: Planned Disposition: Primary Insurance: [employer] ADV Discharge Planning Comments: CM MET WITH PATIENT ABOUT DC PLANNING/NEEDS. DR PATTERSON RECOMMENDS SNF FOR WOUND CARE AND IV ANTIBIOTICS. REFERRAL SENT TO THE [facility]. WAITING FOR CALL BACK. ORDER FOR IV MEDS PLACED ON CHART. SHAHID SIGNED FOR THE [facility]. CM TO FOLLOW AND ASSIST. Industrial Safety And Health Specialist: Mary Barillas Appended by Mary Barillas on 04/07/2019 15:36 CDT: TALKED WITH MARGAUX AND HE IS DENIED BY THE [facility]. REFERRAL SENT TO [facility]. WAITING FOR CALL BACK. DCPIA - Discharge Planning Initial Assessment Updated by [id number]: Maryrosa Barillas on 04/07/19 2:34 pm * Is the patient Alert and Oriented? Yes * ADLs Independent * Other Equipment 02 AND NEBS * Community resources currently utilized None * Additional services required to return to the preadmission environment? Yes * Can the patient safely return to the preadmission environment? No * Has this patient been hospitalized within the prior 30 days at any hospital? No Coverage Notice Reviewer: [id number] - Mary Barillas Notice Issued Date-Time: 04/07/2019 12:42 Notice Type: Patient Choice Letter Notice Delivered To: Patient Relationship to Patient: Power Station Operator Name: Delivery Method: HAND - Hand Delivered Yesica Days: Prior Verbal Notification: Recipient Understood Notice: Yes Recipient Signature: Yes Med Rec Note Co-signed by Attending: Coverage Notice Comment: SHAHID ANY SNF THAT ACCEPTS HIS INURANCE. Last DP export: 04/08/19 2:48 p Patient Name: DIANE MARCIAL Page 28404 at 1007 All edits/amendments must be made on the electronic document DICTATION DATE: 04/09/19 1007 STRETCHING MACHINE TENDER FRAME: BOB 04/09/19 1007 RPT#: [id number] DC DATE: STATUS: ADM IN [facility] [address] [place] [address] END OF REPORT
[2019-04-09 12:47] VITALS: BP 116/75
[2019-04-09 17:01] VITALS: BP 124/86
[2019-04-10] VITALS: BP 109/68
--- NOTE | 2019-04-10 02:11 | NUR ---
PT RESTING IN BED. EYES CLOSED. NO SIGNS OF DISTRESS. BREATHING EVEN AND UNLABORED. BOWEL SOUNDS ACTIVE. IV SITE LT UPPER ARM MIDLINE. DRESSING CLEAN DRY AND INTACT. NO SIGNS OF INFECTION. WILL CONTINUE PLAN OF CARE. CALL LIGHT IN REACH. BED LOWERED AND LOCKED.
--- NOTE | 2019-04-10 03:27 | NUR ---
I have reviewed this patient and I concur with the Shift Assessment completed by the Licensed Practical Nurse today this shift.
[2019-04-10 04:00] VITALS: BP 117/74
[2019-04-10 09:15] VITALS: BP 114/83
--- NOTE | 2019-04-10 12:25 | MORECARE ---
CASE MANAGEMENT DISCHARGE SUMMARY PATIENT: DIANE MARCIAL JR UNIT: [id number] ADM DATE: 04/03/19 AGE: 58 : 56 SEX: M ROOM/BED: D.2234 AUTHOR: LAMBERT,DOC PHYSICIAN: REFERRING PHYSICIAN: HALIMA PATTERSON MD DATE OF SERVICE: 04/10/19 Discharge Plan Patient Name: DIANE MARCIAL Facility: [facility]:[place] : 1960 Planned Disposition: Anticipated Discharge Date: Discharge Date: Expected LOS: Initial Reviewer: [id number] Initial Review Date: 04/07/2019 Generated: 04/10/19 1:25 pm Comments DCP- Discharge Planning Updated by [id number]: Mary Barillas on 04/10/19 11:[address] Patient Name: DIANE MARCIAL Admission Status: ER Accout number: [id number] Admission Date: 04-03-2019 : 1960 Admission Diagnosis:CUTANEOUS ABSCESS OF BUTTOCK Attending: HALIMA PATTERSON Current LOS: 7 Anticipated DC Date: Planned Disposition: Primary Insurance: [employer]ARE ADV Discharge Planning Comments: [facility]STIAN FROM [facility] DENIED SNF FOR PATIENT. CM CALLED NOAH AT [facility] ([place], [place]) AND FAXED HER INFO. PATIENT NEEDS SNF AND IS INTERESTED IN FLYING SQUAD WORKER CARE. CM TO FOLLOW AND ASSIST. Optical Design Engineer: Mary Barillas DCP- Discharge Planning Updated by [id number]: Emily Mccall on 04/08/19 2:[address] SPOKE WITH ROS MALONEY SON AND HE STATED THAT HE CAN NOT GO BACK TO HIS RENT HOUSE. HE WAS LIVING IN HIS RENT HOUSE, BUT HE IS NOT GOING TO BE ABLE TO WHEN HE IS DISCHARGED. ROS WAS GOING TO TALK TO HIS DAD. CM TO FOLLOW AND ASSIST DCP- Discharge Planning Updated by [id number]: Emily Mccall on 04/08/19 2:[address] Per Mary referral sent to [facility], waiting on auth/ safe discharge will attempt to try to call her son to see if patient can come to him after discharge from [facility] [place] [phone] the son's numbers DCP- Discharge Planning Updated by [id number]: Mary Barillas on 04/07/19 2:[address] Patient Name: DIANE MARCIAL Admission Status: ER Accout number: [id number] Admission Date: 04-03-2019 : 1960 Admission Diagnosis:CUTANEOUS ABSCESS OF BUTTOCK Attending: HALIMA PATTERSON Current LOS: 4 Anticipated DC Date: Planned Disposition: Primary Insurance: [employer] ADV Discharge Planning Comments: CM MET WITH PATIENT ABOUT DC PLANNING/NEEDS. DR PATTERSON RECOMMENDS SNF FOR WOUND CARE AND IV ANTIBIOTICS. REFERRAL SENT TO THE [facility]. WAITING FOR CALL BACK. ORDER FOR IV MEDS PLACED ON CHART. SHAHID SIGNED FOR THE [facility]. CM TO FOLLOW AND ASSIST. Optical Design Engineer: Mary Barillas Appended by Mary Barillas on 04/07/2019 15:36 CDT: TALKED WITH MARGAUX AND HE IS DENIED BY THE [facility]. REFERRAL SENT TO [facility] ([place], [place]). WAITING FOR CALL BACK. DCPIA - Discharge Planning Initial Assessment Updated by [id number]: Mary Barillas on 04/07/19 2:34 pm * Is the patient Alert and Oriented? Yes * ADLs Independent * Other Equipment 02 AND NEBS * Community resources currently utilized None * Additional services required to return to the preadmission environment? Yes * Can the patient safely return to the preadmission environment? No * Has this patient been hospitalized within the prior 30 days at any hospital? No Coverage Notice Reviewer: [id number] - Mary Barillas Notice Issued Date-Time: 04/07/2019 12:42 Notice Type: Patient Choice Letter Notice Delivered To: Patient Relationship to Patient: Pattern Marker Name: Delivery Method: HAND - Hand Delivered Yesica Days: Prior Verbal Notification: Recipient Understood Notice: Yes Recipient Signature: Yes Med Rec Note Co-signed by Attending: Coverage Notice Comment: SHAHID ANY SNF THAT ACCEPTS HIS INURANCE. Last DP export: 04/09/19 9:07 a Patient Name: DIANE MARCIAL Page 72906 at 1225 All edits/amendments must be made on the electronic document DICTATION DATE: 04/10/19 1225 GOOD HUMOR VENDOR: BOB 04/10/19 1225 RPT#: [id number] DC DATE: STATUS: ADM IN [facility] [address] [place] [address] END OF REPORT
[2019-04-10 13:10] VITALS: BP 111/73
--- NOTE | 2019-04-10 15:16 | MORECARE ---
CASE MANAGEMENT DISCHARGE SUMMARY PATIENT: DIANE MARCIAL JR UNIT: [id number] ADM DATE: 04/03/19 AGE: 58 : 56 SEX: M ROOM/BED: D.2234 AUTHOR: LAMBERT,DOC PHYSICIAN: REFERRING PHYSICIAN: HALIMA PATTERSON MD DATE OF SERVICE: 04/10/19 Discharge Plan Patient Name: DIANE MARCIAL Facility: [facility]:[place] : 1960 Planned Disposition: Anticipated Discharge Date: Discharge Date: Expected LOS: Initial Reviewer: [id number] Initial Review Date: 04/07/2019 Generated: 04/10/19 4:16 pm Comments DCP- Discharge Planning Updated by [id number]: Mary Barillas on 04/10/19 2:[address] Patient Name: DIANE MARCIAL Admission Status: ER Accout number: [id number] Admission Date: 04-03-2019 : 1960 Admission Diagnosis:CUTANEOUS ABSCESS OF BUTTOCK Attending: HALIMA PATTERSON Current LOS: 7 Anticipated DC Date: Planned Disposition: Primary Insurance: [employer] ADV Discharge Planning Comments: SEBASTIAN FROM [facility] DENIED SNF FOR PATIENT. CM CALLED NOAH AT [facility] AND FAXED HER INFO. PATIENT NEEDS SNF AND IS INTERESTED IN WINDOWS APPLICATION DEVELOPER CARE. CM TO FOLLOW AND ASSIST. Cage Manager: Mary Barillas Appended by Mary Barillas on 04/10/2019 15:14 CDT: [facility] DENIED. FAXED TO [facility]. I ALSO CONTACTED CHAU COUGHLIN WITH [facility] AND SHE IS HELPING WITH HIS PLACEMENT. DCP- Discharge Planning Updated by [id number]: Emily Mccall on 04/08/19 2:[address] SPOKE WITH ROS PATIENTS SON AND HE STATED THAT HE CAN NOT GO BACK TO HIS RENT HOUSE. HE WAS LIVING IN HIS RENT HOUSE, BUT HE IS NOT GOING TO BE ABLE TO WHEN HE IS DISCHARGED. ORS WAS GOING TO TALK TO HIS DAD. CM TO FOLLOW AND ASSIST DCP- Discharge Planning Updated by [id number]: Emily Mccall on 04/08/19 2:[address] Per Mary referral sent to [facility], waiting on auth/ safe discharge will attempt to try to call her son to see if patient can come to him after discharge from [facility] [phone] the son's numbers DCP- Discharge Planning Updated by [id number]: Mary Nargis on 04/07/19 2:[address] Patient Name: DIANE MARCIAL Admission Status: ER Accout number: [id number] Admission Date: 04-03-2019 : 1960 Admission Diagnosis:CUTANEOUS ABSCESS OF BUTTOCK Attending: HALIMA PATTERSON Current LOS: 4 Anticipated DC Date: Planned Disposition: Primary Insurance: [employer] MED[employer]ARE ADV Discharge Planning Comments: CM MET WITH PATIENT ABOUT DC PLANNING/NEEDS. DR PATTERSON RECOMMENDS SNF FOR WOUND CARE AND IV ANTIBIOTICS. REFERRAL SENT TO THE [facility]. WAITING FOR CALL BACK. ORDER FOR IV MEDS PLACED ON CHART. SHAHID SIGNED FOR THE [facility]. CM TO FOLLOW AND ASSIST. Cage Manager: Mary Barillas Appended by Mary Barillas on 04/07/2019 15:36 CDT: TALKED WITH MARGAUX AND HE IS DENIED BY THE [facility]. REFERRAL SENT TO [facility]. WAITING FOR CALL BACK. DCPIA - Discharge Planning Initial Assessment Updated by [id number]: Mary Barillas on 04/07/19 2:34 pm * Is the patient Alert and Oriented? Yes * ADLs Independent * Other Equipment 02 AND NEBS * Community resources currently utilized None * Additional services required to return to the preadmission environment? Yes * Can the patient safely return to the preadmission environment? No * Has this patient been hospitalized within the prior 30 days at any hospital? No External Providers External Provider: [facility] Next Contact Date: Service Request Date: Service Type: Resolution: Reviewer: Comments: Coverage Notice Reviewer: [id number] - Mary Barillas Notice Issued Date-Time: 04/07/2019 12:42 Notice Type: Patient Choice Letter Notice Delivered To: Patient Relationship to Patient: Mill Operator Helper Name: Delivery Method: HAND - Hand Delivered Yesica Days: Prior Verbal Notification: Recipient Understood Notice: Yes Recipient Signature: Yes Med Rec Note Co-signed by Attending: Coverage Notice Comment: SHAHID ANY SNF THAT ACCEPTS HIS INURANCE. Last DP export: 04/10/19 11:25 a Patient Name: DIANE MARCIAL Page [phone] at 1516 All edits/amendments must be made on the electronic document DICTATION DATE: 04/10/191514 MANAGER FINANCIAL REPORTING: BOB 04/10/191514 RPT#: [id number] DC DATE: STATUS: ADM IN [facility] [address] [place] [address] END OF REPORT
--- NOTE | 2019-04-10 15:23 | NUR ---
OT NOTE: PT COMPLETED SIT TO STAND WITH CGA . PT COMPLETED ADL MOB WITH CGA. PT COMPLETED FACE WASH WITH SET UP. PT CONFUSED AND NEEDED INCREASED PHYSICAL ASSIST THIS VISIT. THANK YOU, LORI UNDERWOOD
--- NOTE | 2019-04-10 17:39 | NUR ---
I have reviewed this patient and I concur with the Shift Assessment completed by the Licensed Practical Nurse today this shift.
[2019-04-10 18:10] VITALS: BP 113/65
[2019-04-10 19:55] VITALS: BP 106/59
--- NOTE | 2019-04-10 21:30 | NUR ---
AROUSES EASILY TO VERBAL STIMULI. RESP EVEN AND UNALBORED. NO DISTRESS NOTED. IV INFUSING TO MARKY MIDLINE WITH NO REDNESS OR EDEMA NOTED. DRESSING TO RIGHT GROIN AN JOHNNA AREA INTACT WITHOUT DRAINAGE.CL IN REACH
--- NOTE | 2019-04-10 22:10 | NUR ---
INCONTINENT OF BOWEL.DRESSING TO RIGHT PERINEAL AREA WITH FECES NOTED. JOHNNA CARE GIVEN WITH DRESSING CHANGED USING STERILE TECHNIQUE.TOLERATED WELL. CL IN REACH
[2019-04-11] VITALS: BP 122/78
--- NOTE | 2019-04-11 02:02 | NUR ---
I have reviewed this patient and I concur with the Shift Assessment completed by the Licensed Practical Nurse today this shift.
[2019-04-11 04:00] VITALS: BP 119/78
--- NOTE | 2019-04-11 07:42 | NUR ---
REC'D IN BED AWAKE AND ALERT. RESP EVEN AND UNLABORED WITH NO DISTRESS NOTED.CAN EXPRESS NEEDS AND WANTS. NO C/O NOTED OR VOICED. ASSESSMENT COMPELTED. C/L IN REACH AT BEDSIDE.
[2019-04-11 08:30] VITALS: BP 105/64
--- NOTE | 2019-04-11 09:21 | NUR ---
Nutrition follow-up: Diet: Regular PO intake fair at this time Labs reviewed Wt: 165# +BM Will offer nutritional supplements. RDN following.
[2019-04-11 12:47] VITALS: BP 118/69
--- NOTE | 2019-04-11 14:36 | NUR ---
OT NOTE: PT COMPLETED ADL MOB TASKS WITH MOD I. PT COMPLETED HYGIENE TASKS WITH MOD I. THANK YOU, LORI UNDERWOOD
--- NOTE | 2019-04-11 16:00 | NUR ---
I have reviewed this patient and I concur with the Shift Assessment completed by the Licensed Practical Nurse today this shift.
--- NOTE | 2019-04-11 16:13 | MORECARE ---
CASE MANAGEMENT DISCHARGE SUMMARY PATIENT: DIANE MARCIAL JR UNIT: [id number] ADM DATE: 04/03/19 AGE: 58 : 56 SEX: M ROOM/BED: D.2234 AUTHOR: LAMBERT,DOC PHYSICIAN: REFERRING PHYSICIAN: HALIMA PATTERSON MD DATE OF SERVICE: 04/11/19 Discharge Plan Patient Name: DIANE MARCIAL Facility: [facility]:[place] : 1960 Planned Disposition: Anticipated Discharge Date: Discharge Date: Expected LOS: Initial Reviewer: [id number] Initial Review Date: 04/07/2019 Generated: 04/11/19 5:13 pm DCP- Discharge Planning Updated by [id number]: Mary Barillas on 04/10/19 2:[address] Patient Name: DIANE MARCIAL Admission Status: ER Accout number: [id number] Admission Date: 04-03-2019 : 1960 Admission Diagnosis:CUTANEOUS ABSCESS OF BUTTOCK Attending: HALIMA PATTERSON Current LOS: 7 Anticipated DC Date: Planned Disposition: Primary Insurance: [employer] MEDICARE ADV Discharge Planning Comments: SEBASTIAN FROM [facility] DENIED SNF FOR PATIENT. CM CALLED NOAH AT [facility] AND FAXED HER INFO. PATIENT NEEDS SNF AND IS INTERESTED IN ALF CARE. CM TO FOLLOW AND ASSIST. Keno Terminal Operator: Mary Barillas Appended by Mary Barillas on 04/10/2019 15:14 CDT: [facility] DENIED. FAXED TO [facility]. I ALSO CONTACTED CHAU COUGHLIN WITH [facility] AND SHE IS HELPING WITH HIS PLACEMENT. DCP- Discharge Planning Updated by [id number]: Emily Mccall on 04/08/19 2:[address] SPOKE WITH ROS PATIENTS SON AND HE STATED THAT HE CAN NOT GO BACK TO HIS RENT HOUSE. HE WAS LIVING IN HIS RENT HOUSE, BUT HE IS NOT GOING TO BE ABLE TO WHEN HE IS DISCHARGED. ROS WAS GOING TO TALK TO HIS DAD. CM TO FOLLOW AND ASSIST DCP- Discharge Planning Updated by [id number]: Emily Mccall on 04/08/19 2:[address] Per Mary referral sent to [facility], waiting on auth/ safe discharge will attempt to try to call her son to see if patient can come to him after discharge from [facility] [phone] the son's numbers DCP- Discharge Planning Updated by [id number]: Maryrosa Barillas on 04/07/19 2:[address] Patient Name: DIANE MARCIAL Admission Status: ER Accout number: [id number] Admission Date: 04-03-2019 : 1960 Admission Diagnosis:CUTANEOUS ABSCESS OF BUTTOCK Attending: HALIMA PATTERSON Current LOS: 4 Anticipated DC Date: Planned Disposition: Primary Insurance: [employer] MEDICARE ADV Discharge Planning Comments: CM MET WITH PATIENT ABOUT DC PLANNING/NEEDS. DR PATTERSON RECOMMENDS SNF FOR WOUND CARE AND IV ANTIBIOTICS. REFERRAL SENT TO THE [facility]. WAITING FOR CALL BACK. ORDER FOR IV MEDS PLACED ON CHART. SHAHID SIGNED FOR THE [facility]. CM TO FOLLOW AND ASSIST. Keno Terminal Operator: Mary Barillas Appended by Mary Barillas on 04/07/2019 15:36 CDT: TALKED WITH MARGAUX AND HE IS DENIED BY THE [facility]. REFERRAL SENT TO [facility]. WAITING FOR CALL BACK. DCPIA - Discharge Planning Initial Assessment Updated by [id number]: Mary Barillas on 04/07/19 2:34 pm * Is the patient Alert and Oriented? Yes * ADLs Independent * Other Equipment 02 AND NEBS * Community resources currently utilized None * Additional services required to return to the preadmission environment? Yes * Can the patient safely return to the preadmission environment? No * Has this patient been hospitalized within the prior 30 days at any hospital? No Coverage Notice Reviewer: [id number] - Mary Barillas Notice Issued Date-Time: 04/07/2019 12:42 Notice Type: Patient Choice Letter Notice Delivered To: Patient Relationship to Patient: Swatch Paster Name: Delivery Method: HAND - Hand Delivered Yesica Days: Prior Verbal Notification: Recipient Understood Notice: Yes Recipient Signature: Yes Med Rec Note Co-signed by Attending: Coverage Notice Comment: SHAHID ANY SNF THAT ACCEPTS HIS INURANCE. Last DP export: 04/10/19 2:16 p Patient Name: DIANE MARCIAL Page 60749 at 1613 All edits/amendments must be made on the electronic document DICTATION DATE: 04/11/191612 CHILDREN'S COUNSELOR: BOB 04/11/191612 RPT#: [id number] DC DATE: STATUS: ADM IN [facility] [address] [place] [address] END OF REPORT
[2019-04-11 20:00] VITALS: BP 124/76
--- NOTE | 2019-04-11 20:00 | NUR ---
ALERT UP AMBULATING IN ROOM, DENIES PAIN, SEE SHIFT ASSESSMENT, CALL LIGHT IN REACH
[2019-04-12 04:00] VITALS: BP 130/80
--- NOTE | 2019-04-12 07:35 | NUR ---
PT UP WALKING AROUND ROOM, ALERT AND ORIENTED. DRESSING TO RIGHT GROIN AREA, C/D/I. MIDLINE TO LEFT UPPER ARM, SL. SITE PATENT WITHOUT REDNESS OR SWELLING. NO C/O PAIN. NO S/S OF ACUTE DISTRESS NOTED. CALL LIGHT IN REACH. WILL CONTINUE TO MONITOR,
[2019-04-12 09:35] VITALS: BP 128/86
--- NOTE | 2019-04-12 12:39 | NUR ---
I have reviewed this patient and I concur with the Shift Assessment completed by the Licensed Practical Nurse today this shift.
[2019-04-12 13:16] VITALS: BP 140/74
[2019-04-12 17:16] VITALS: BP 119/62
--- NOTE | 2019-04-12 18:28 | NUR ---
ALERT AND ORIENTED, SITTING UP ON THE SIDE OF THE BED. NO C/O PAIN. NO S/S OF ACUTE DISTRESS NOTED. CALL LIGHT IN REACH. PT DENIES ANY NEEDS. WILL CONTINUE TO MONITOR.
--- NOTE | 2019-04-12 19:15 | NUR ---
PT ALERT AND ORIENTED. DENIES PAIN AT THIS TIME. ASKS TO LEAVE ROOM. EDUCATED PATIENT ON SAFETY AND THAT MEDICATIONS WERE COMING UP SOON. PATIENT STATED HE WANTED TO WALK AROUND AND STATED "I WON'T GO OUTSIDE." PATIENT WITH LEFT UPPER ARM MIDLINE AND VANCO. INFUSING AT THIS TIME. RIGHT PERINEAL AREA WITH PACKING AND DRESSING TO AREA. CLEAN AT THIS TIME. PATIENT RESTLESS. LEFT ROOM SHORTLY AFTER ASSESSMENT. MET PATIENT IN HALLWAY AND ASKED PATIENT TO NOT LEAVE FLOOR BUT TO MAKE ROUNDS IN HALLWAY SO HE'S CLOSE IF IN NEED. PATIENT STATES "I WALK THE HOSPITAL AND I WILL BE BACK."
--- NOTE | 2019-04-12 19:55 | NUR ---
PATIENT RETURNED TO FLOOR.
[2019-04-12 20:00] VITALS: BP 118/64
--- NOTE | 2019-04-12 21:05 | NUR ---
ADMINISTERED PATIENT HS MEDICATION AT 2034. EDCUATED PATIENT ON NARCOTICS AND TO PLEASE STAY IN ROOM AT LEAST ONE HOUR OR TO REMAIN ON FLOOR WHERE NURSING STAFF CAN MONITOR PATIENT. PATIENT STATED "OKAY". SHORTLY AFTER ADMINISTRATION PATIENT WALKING DOWN HALLWAY WITH IV POLE ATTEMPTING TO GO DOWN ELEVATOR AGAIN. EDUCATED AND ADVISED PATIENT TO PLEASE STAY ON FLOOR FOR MONITORING. PATIENT UPSET AND STATES "I HAVE BEEN TAKING THIS SHIT FOR YEARS. THIS ISN'T A NARCOTIC IT DOESN'T DO SHIT FOR ME. I WILL LEAVE." ADVISED PATIENT TO PLEASE CALM DOWN AND THAT IT IS SIMPLY FOR HIS SAFETY. EDUCATED PATIENT THE HE IS IN NEED OF THE TREATEMENT REGIMEN THAT HE IS RECEIVING WHILE IN PATIENT. PATIENT STATES "I WILL LEAVE." PATIENT WENT DOWN ELEVATOR. CONSULTED WITH CHARGE NURSE ABOUT SITUATION. CHARGE NURSE STATES TO TALK WITH PATIENT WHEN RETURNING. PATIENT RETURNED TO FLOOR AND STATES "I WILL HAVE MY SON COME PICK ME UP." TOLD PATIENT THAT IT IS SIMPLY FOR SAFETY THAT WE ASK HE REMAIN ON FLOOR FOR AT LEAST ONE HOUR AFTER NARCOTIC ADMINSITRATION. PATIENT ADAMANT THAT "VALUUM DOESN'T DO ANYTHING TO ME." REINFORCED TEACHING. PATIENT STATES "I AM SCHIZOPHRENIC, BIPOLAR AND EVERYTHING IN BETWEEN AND I NEED MY TRAZADONE AND DEPAKOTE AND YALL WON'T GIVE IT TO ME. THIS IS WHY I AM SO RESTLESS AND UPSET ALL THE TIME. I WILL TRY TO STAY IN MY ROOM BUT I DON'T KNOW IF I CAN." PATIENT CURRENTLY IN ROOM. WILL CONTINUE PLAN OF CARE FOR PATIENT AT THIS TIME.
--- NOTE | 2019-04-12 23:20 | NUR ---
PAIN MEDICATION ADMINISTERED AND DRESSING CHANGE. PATIENT MUCH MORE COOPERATIVE AT THIS TIME. DENIES FURTHER NEEDS. CPOC.
[2019-04-13 04:00] VITALS: BP 120/80
--- NOTE | 2019-04-13 06:51 | NUR ---
I have reviewed this patient and I concur with the Shift Assessment completed by the Licensed Practical Nurse today this shift.
--- NOTE | 2019-04-13 08:00 | NUR ---
PT RESTING IN BED WITH EYES CLOSED, EASILY AROUSED TO SPEECH. BREATHING EVEN AND NONLABORED, NO S/S OF DISTRESS. DENIES NEEDS AT THIS TIME. BED LOW, CALL LIGHT IN REACH, RAILS UP X 1. WILL CONTINUE TO MONITOR.
[2019-04-13 08:07] VITALS: BP 130/89
--- NOTE | 2019-04-13 08:10 | NUR ---
PT SITTING UP IN BED REPORTS PAIN 10/10, ADMINISTERED NORCO PER ORDERS. DENIES ANY FURTHER NEEDS AT THIS TIME.
--- NOTE | 2019-04-13 10:48 | NUR ---
PT LINOLEUM TILE LAYER LIGHT REPORTING HIS PACKING HAS FALLEN OUT. REPACKED WOUND AND CHANGED DRESSING.
[2019-04-13 17:28] VITALS: BP 126/89
--- NOTE | 2019-04-13 19:15 | NUR ---
ALERT AND ORIENTED. WALKING AROUND ROOM. WEARING REGULAR CLOTHES AT THIS TIME. REFUSES GOWN. PATIENT COOPERATIVE WITH STAFF THIS EVENING BUT TALKS FAST AND APPEARS TO BE EXPERIENCING SOME FELIPA. PATIENT HAS LEFT UPPER ARM MIDLINE THAT IS PATENT AND INTACT CURRENTLY AT A KVO RATE. DENIES PAIN AT THIS TIME. DRESSING IS CLEAN AND DRY AT THIS TIME. PATIENT HAS CALL LIGHT IN REACH. USES WHEN IN NEED OF ASSISTANCE. DENIES FURTHER NEEDS AT THIS TIME. CPOC.
[2019-04-13 20:00] VITALS: BP 138/79
[2019-04-14] VITALS: BP 141/88
--- NOTE | 2019-04-14 02:46 | NUR ---
I have reviewed this patient and I concur with the Shift Assessment completed by the Licensed Practical Nurse today this shift.
[2019-04-14 04:00] VITALS: BP 148/92
--- NOTE | 2019-04-14 07:43 | NUR ---
PT IS SITTING ONSIDE OF BED. RESPIRATIONS ARE EVEN AND UNLABORED. PT DENIES PRESENCE OF PAIN. PT DENIES PRESENCE OF N/V. PT IS AAO X 4. CONTACT ISOLATION PRECAUTIONS FOLLOWED. PT WITH LEFT UPPER ARM MIDLINE. DRESSING IS CDI. PT DENIES FURTHER NEEDS. BED IS IN THE LOWEST POSITION. CALL LIGHT AND BEDSIDE TABLE ARE WITHIN REACH. WILL CONT TO MONITOR.
[2019-04-14 08:34] VITALS: BP 149/85
--- NOTE | 2019-04-14 11:52 | MORECARE ---
CASE MANAGEMENT DISCHARGE SUMMARY PATIENT: DIANE MARCIAL JR UNIT: [id number] ADM DATE: 04/03/19 AGE: 58 : 56 SEX: M ROOM/BED: D.2234 AUTHOR: LAMBERTDOC PHYSICIAN: REFERRING PHYSICIAN: HALIMA PATTERSON MD DATE OF SERVICE: 04/14/19 Discharge Plan Patient Name: DIANE MARCIAL Facility: [facility]:[place] : 1960 Planned Disposition: Anticipated Discharge Date: Discharge Date: Expected LOS: Initial Reviewer: [id number] Initial Review Date: 04/07/2019 Generated: 04/14/19 12:52 pm Comments DCP- Discharge Planning Updated by [id number]: Mary Barillas on 04/14/19 10:[address] Patient Name: DIANE MARCIAL Admission Status: ER Accout number: [id number] Admission Date: 04-03-2019 : 1960 Admission Diagnosis:CUTANEOUS ABSCESS OF BUTTOCK Attending: HALIMA PATTERSON Current LOS: 11 Anticipated DC Date: Planned Disposition: Primary Insurance: [employer]CARE MEDICARE ADV Discharge Planning Comments: RECEIVED CALL FROM [employer] SAYING DID NOT RECIEVE REFERRAL. CM REFAXED REFERRAL AT 1145 TODAY. CM TO FOLLOW AND ASSSIT. Natural Resources Extension Educator: Mary Barillas DCP- Discharge Planning Updated by [id number]: Mary Barillas on 04/10/19 2:[address] Patient Name: DIANE MARCIAL Admission Status: ER Accout number: [id number] Admission Date: 04-03-2019 : 1960 Admission Diagnosis:CUTANEOUS ABSCESS OF BUTTOCK Attending: HALIMA PATTERSON Current LOS: 7 Anticipated DC Date: Planned Disposition: Primary Insurance: [employer] MEDICARE ADV Discharge Planning Comments: SEBASTIAN FROM [facility] DENIED SNF FOR PATIENT. CM CALLED NOAH AT [facility] AND FAXED HER INFO. PATIENT NEEDS SNF AND IS INTERESTED IN [facility]F-WAY CARE. CM TO FOLLOW AND ASSIST. Natural Resources Extension Educator: Mary Barillas Appended by Mary Barillas on 04/10/2019 15:14 CDT: [facility] DENIED. FAXED TO [facility]. I ALSO CONTACTED CHAU COUGHLIN WITH [facility] AND SHE IS HELPING WITH HIS PLACEMENT. DCP- Discharge Planning Updated by [id number]: Emily Mccall on 04/08/19 2:[address] SPOKE WITH ROS MALONEY SON AND HE STATED THAT HE CAN NOT GO BACK TO HIS RENT HOUSE. HE WAS LIVING IN HIS RENT HOUSE, BUT HE IS NOT GOING TO BE ABLE TO WHEN HE IS DISCHARGED. ROS WAS GOING TO TALK TO HIS DAD. CM TO FOLLOW AND ASSIST DCP- Discharge Planning Updated by [id number]: Eimly Mccall on 04/08/19 2:[address] Per Mary referral sent to [facility] [place], waiting on auth/ safe discharge will attempt to try to call her son to see if patient can come to him after discharge from [facility] [phone] the son's numbers DCP- Discharge Planning Updated by [id number]: Mary Barillas on 04/07/19 2:[address] Patient Name: DIANE MARCIAL Admission Status: ER Accout number: [id number] Admission Date: 04-03-2019 : 1960 Admission Diagnosis:CUTANEOUS ABSCESS OF BUTTOCK Attending: HALIMA PATTERSON Current LOS: 4 Anticipated DC Date: Planned Disposition: Primary Insurance: WE[employer] MEDICARE ADV Discharge Planning Comments: CM MET WITH PATIENT ABOUT DC PLANNING/NEEDS. DR PATTERSON RECOMMENDS SNF FOR WOUND CARE AND IV ANTIBIOTICS. REFERRAL SENT TO THE [facility]. WAITING FOR CALL BACK. ORDER FOR IV MEDS PLACED ON CHART. SHAHID SIGNED FOR THE [facility]. CM TO FOLLOW AND ASSIST. Natural Resources Extension Educator: Mary Barillas Appended by Mary Barillas on 04/07/2019 15:36 CDT: TALKED WITH MARGAUX AND HE IS DENIED BY THE [facility]. REFERRAL SENT TO [facility]. WAITING FOR CALL BACK. DCPIA - Discharge Planning Initial Assessment Updated by [id number]: Mary Barillas on 04/07/19 2:34 pm * Is the patient Alert and Oriented? Yes * ADLs Independent * Other Equipment 02 AND NEBS * Community resources currently utilized None * Additional services required to return to the preadmission environment? Yes * Can the patient safely return to the preadmission environment? No * Has this patient been hospitalized within the prior 30 days at any hospital? No Coverage Notice Reviewer: [id number] Barillas Notice Issued Date-Time: 04/07/2019 12:42 Notice Type: Patient Choice Letter Notice Delivered To: Patient Relationship to Patient: Maintenance Helper Utility Engineer Name: Delivery Method: HAND - Hand Delivered Yesica Days: Prior Verbal Notification: Recipient Understood Notice: Yes Recipient Signature: Yes Med Rec Note Co-signed by Attending: Coverage Notice Comment: SHAHID ANY SNF THAT ACCEPTS HIS INURANCE. Last DP export: 04/11/19 3:13 p Patient Name: DIANE MARCIAL Page 11825 at 1152 All edits/amendments must be made on the electronic document DICTATION DATE: 04/14/19 1152 COOK HELPER MEAT: BOB 04/14/19 1152 RPT#: [id number] DC DATE: STATUS: ADM IN [facility] [address] [place] [address] END OF REPORT
--- NOTE | 2019-04-14 12:09 | MORECARE ---
CASE MANAGEMENT DISCHARGE SUMMARY PATIENT: DIANE MARCIAL JR UNIT: [id number] ADM DATE: 04/03/19 AGE: 58 : 56 SEX: M ROOM/BED: D.2234 AUTHOR: LAMBERTDOC PHYSICIAN: REFERRING PHYSICIAN: HALIMA PATTERSON MD DATE OF SERVICE: 04/14/19 Discharge Plan Patient Name: DIANE MARCIAL Facility: [facility]:[place] : 1960 Planned Disposition: Anticipated Discharge Date: Discharge Date: Expected LOS: Initial Reviewer: [id number] Initial Review Date: 04/07/2019 Generated: 04/14/19 1:08 pm Comments DCP- Discharge Planning Updated by [id number]: Mary Barillas on 04/14/19 11:[address] Patient Name: DIANE MARCIAL Admission Status: ER Accout number: [id number] Admission Date: 04-03-2019 : 1960 Admission Diagnosis:CUTANEOUS ABSCESS OF BUTTOCK Attending: HALIMA PATTERSON Current LOS: 11 Anticipated DC Date: Planned Disposition: Primary Insurance: WE[employer] MEDICARE ADV Discharge Planning Comments: RECEIVED CALL FROM [employer] SAYING DID NOT RECIEVE REFERRAL. CM REFAXED REFERRAL AT 1145 TODAY. CM TO FOLLOW AND ASSSIT. Fire Truck Driver: Mary Barillas Appended by Mary Barillas on 04/14/2019 12:00 CDT: PATIENT JUST CALLED ME AND SAYS HE ONLY HAS ONE MORE IV INFUSION. STATES HE DOES NOT WANT TO GO TO SNF, HE WANTS TO DC AND HIS SON WILL PICK HIM UP. CM TO FOLLOW AND ASSIST. DCP- Discharge Planning Updated by [id number]: Mary Barillas on 04/10/19 2:[address] Patient Name: DIANE MARCIAL Admission Status: ER Accout number: [id number] Admission Date: 04-03-2019 : 1960 Admission Diagnosis:CUTANEOUS ABSCESS OF BUTTOCK Attending: HALIMA PATTERSON Current LOS: 7 Anticipated DC Date: Planned Disposition: Primary Insurance: WELL[employer] MEDICARE ADV Discharge Planning Comments: SEBASTIAN FROM [facility] DENIED SNF FOR PATIENT. CM CALLED NOAH AT [facility] AND FAXED HER INFO. PATIENT NEEDS SNF AND IS INTERESTED IN [facility]CC CARE. CM TO FOLLOW AND ASSIST. Fire Truck Driver: Mary Barillas Appended by Mary Barillas on 04/10/2019 15:14 CDT: [facility] DENIED. FAXED TO [facility]. I ALSO CONTA[facility] AND SHE IS HELPING WITH HIS PLACEMENT. DCP- Discharge Planning Updated by [id number]: Emily Mccall on 04/08/19 2:[address] SPOKE WITH ROS MALONEY SON AND HE STATED THAT HE CAN NOT GO BACK TO HIS RENT HOUSE. HE WAS LIVING IN HIS RENT HOUSE, BUT HE IS NOT GOING TO BE ABLE TO WHEN HE IS DISCHARGED. ROS WAS GOING TO TALK TO HIS DAD. CM TO FOLLOW AND ASSIST DCP- Discharge Planning Updated by [id number]: Emily Mccall on 04/08/19 2:[address] Per Mary referral sent to [facility], waiting on auth/ safe discharge will attempt to try to call her son to see if patient can come to him after discharge from [facility] [phone] the son's numbers DCP- Discharge Planning Updated by [id number]: Mary Barillas on 04/07/19 2:[address] Patient Name: DIANE MARCIAL Admission Status: ER Accout number: [id number] Admission Date: 04-03-2019 : 1960 Admission Diagnosis:CUTANEOUS ABSCESS OF BUTTOCK Attending: HALIMA PATTERSON Current LOS: 4 Anticipated DC Date: Planned Disposition: Primary Insurance: WE[employer] MEDICARE ADV Discharge Planning Comments: CM MET WITH PATIENT ABOUT DC PLANNING/NEEDS. DR PATTERSON RECOMMENDS SNF FOR WOUND CARE AND IV ANTIBIOTICS. REFERRAL SENT TO THE [facility]. WAITING FOR CALL BACK. ORDER FOR IV MEDS PLACED ON CHART. SHAHID SIGNED FOR THE [facility]. CM TO FOLLOW AND ASSIST. Fire Truck Driver: Mary Barillas Appended by Mary Barillas on 04/07/2019 15:36 CDT: TALKED WITH MARGAUX AND HE IS DENIED BY THE [facility]. REFERRAL SENT TO [facility]. WAITING FOR CALL BACK. DCPIA - Discharge Planning Initial Assessment Updated by [id number]: Mary Barillas on 04/07/19 2:34 pm * Is the patient Alert and Oriented? Yes * ADLs Independent * Other Equipment 02 AND NEBS * Community resources currently utilized None * Additional services required to return to the preadmission environment? Yes * Can the patient safely return to the preadmission environment? No * Has this patient been hospitalized within the prior 30 days at any hospital? No Coverage Notice Reviewer: [id number] Charli Barillas Notice Issued Date-Time: 04/07/2019 12:42 Notice Type: Patient Choice Letter Notice Delivered To: Patient Relationship to Patient: Rope Making Machine Operator Name: Delivery Method: HAND - Hand Delivered Yesica Days: Prior Verbal Notification: Recipient Understood Notice: Yes Recipient Signature: Yes Med Rec Note Co-signed by Attending: Coverage Notice Comment: SHAHID ANY SNF THAT ACCEPTS HIS INURANCE. Last DP export: 04/14/19 10:52 a Patient Name: DIANE MARCIAL Page 49135 at 1209 All edits/amendments must be made on the electronic document DICTATION DATE: 04/14/191207 MANUFACTURING FINANCE MANAGER: BOB 04/14/191207 RPT#: [id number] DC DATE: STATUS: ADM IN [facility] [address] [place] [address] END OF REPORT
[2019-04-14 13:48] VITALS: BP 113/73
--- NOTE | 2019-04-14 14:01 | MORECARE ---
CASE MANAGEMENT DISCHARGE SUMMARY PATIENT: DIANE MARCIAL JR UNIT: [id number] ADM DATE: 04/03/19 AGE: 58 : 56 SEX: M ROOM/BED: D.2234 AUTHOR: LAMBERTDOC PHYSICIAN: REFERRING PHYSICIAN: HALIMA PATTERSON MD DATE OF SERVICE: 04/14/19 Discharge Plan Patient Name: DIANE MARCIAL Facility: [facility]:[place] : 1960 Planned Disposition: Anticipated Discharge Date: Discharge Date: Expected LOS: Initial Reviewer: [id number] Initial Review Date: 04/07/2019 Generated: 04/14/19 3:01 pm Comments DCP- Discharge Planning Updated by [email or web address]: Mary Barillas on 04/14/19 12:[address] Patient Name: DIANE MARCIAL Admission Status: ER Accout number: [id number] Admission Date: 04-03-2019 : 1960 Admission Diagnosis:CUTANEOUS ABSCESS OF BUTTOCK Attending: HALIMA PATTERSON Current LOS: 11 Anticipated DC Date: Planned Disposition: Primary Insurance: WELLCARE MEDICARE ADV Discharge Planning Comments: RECEIVED CALL FROM [employer] DID NOT RECIEVE REFERRAL. CM REFAXED REFERRAL AT 1145 TODAY. CM TO FOLLOW AND ASSSIT. Senior Director Creative Services: Mary Barillas Appended by Mary Barillas on 04/14/2019 12:00 CDT: PATIENT JUST CALLED ME AND SAYS HE ONLY HAS ONE MORE IV INFUSION. STATES HE DOES NOT WANT TO GO TO SNF, HE WANTS TO DC AND HIS SON WILL PICK HIM UP. CM TO FOLLOW AND ASSIST. Appended by Mary Barillas on 04/14/2019 13:51 CDT: [facility] CALLED ME AND DENIED PATIENT FOR SNF. DCP- Discharge Planning Updated by [id number]: Mary Barillas on 04/10/19 2:[address] Patient Name: DIANE MARCIAL Admission Status: ER Accout number: [id number] Admission Date: 04-03-2019 : 1960 Admission Diagnosis:CUTANEOUS ABSCESS OF BUTTOCK Attending: HALIMA PATTERSON Current LOS: 7 Anticipated DC Date: Planned Disposition: Primary Insurance: WELLCARE MEDICARE ADV Discharge Planning Comments: SEBASTIAN FROM [facility] DENIED SNF FOR PATIENT. CM CALLED NOAH AT [facility] AND FAXED HER INFO. PATIENT NEEDS SNF AND IS INTERESTED IN [facility]. CM TO FOLLOW AND ASSIST. Senior Director Creative Services: Mary Barillas Appended by Mary Barillas on 04/10/2019 15:14 CDT: [facility] DENIED. FAXED TO [facility]. I ALSO CONTACTED CHAU COUGHLIN WITH [facility] AND SHE IS HELPING WITH HIS PLACEMENT. DCP- Discharge Planning Updated by [email or web address]: Emily Mccall on 04/08/19 2:[address] SPOKE WITH ROS MALONEY SON AND HE STATED THAT HE CAN NOT GO BACK TO HIS RENT HOUSE. HE WAS LIVING IN HIS RENT HOUSE, BUT HE IS NOT GOING TO BE ABLE TO WHEN HE IS DISCHARGED. ROS WAS GOING TO TALK TO HIS DAD. CM TO FOLLOW AND ASSIST DCP- Discharge Planning Updated by [id number]: Emily Mccall on 04/08/19 2:[address] Per Mary referral sent to [facility], waiting on auth/ safe discharge will attempt to try to call her son to see if patient can come to him after discharge [facility] [phone] the son's numbers DCP- Discharge Planning Updated by [id number]: Mary Barillas on 04/07/19 2:[address] Patient Name: DIANE MARCIAL Admission Status: ER Accout number: [id number] Admission Date: 04-03-2019 : 1960 Admission Diagnosis:CUTANEOUS ABSCESS OF BUTTOCK Attending: HALIMA PATTERSON Current LOS: 4 Anticipated DC Date: Planned Disposition: Primary Insurance: WELLCARE MEDICARE ADV Discharge Planning Comments: CM MET WITH PATIENT ABOUT DC PLANNING/NEEDS. DR PATTERSON RECOMMENDS SNF FOR WOUND CARE AND IV ANTIBIOTICS. REFERRAL SENT TO THE [facility]. WAITING FOR CALL BACK. ORDER FOR IV MEDS PLACED ON CHART. SHAHID SIGNED FOR THE [facility]. CM TO FOLLOW AND ASSIST. Senior Director Creative Services: Mary Barillas Appended by Mary Barillas on 04/07/2019 15:36 CDT: TALKED WITH MARGAUX AND HE IS DENIED BY THE [facility]. REFERRAL SENT TO [facility]. WAITING FOR CALL BACK. DCPIA - Discharge Planning Initial Assessment Updated by [id number]: Mary Barillas on 04/07/19 2:34 pm * Is the patient Alert and Oriented? Yes * ADLs Independent * Other Equipment 02 AND NEBS * Community resources currently utilized None * Additional services required to return to the preadmission environment? Yes * Can the patient safely return to the preadmission environment? No * Has this patient been hospitalized within the prior 30 days at any hospital? No Coverage Notice Reviewer: [id number] - Maryrosa Barillas Notice Issued Date-Time: 04/07/2019 12:42 Notice Type: Patient Choice Letter Notice Delivered To: Patient Relationship to Patient: Supervisor Electronic Testing Name: Delivery Method: HAND - Hand Delivered Yesica Days: Prior Verbal Notification: Recipient Understood Notice: Yes Recipient Signature: Yes Med Rec Note Co-signed by Attending: Coverage Notice Comment: SHAHID ANY SNF THAT ACCEPTS HIS INURANCE. Last DP export: 04/14/19 11:09 a Patient Name: DIANE MARCIAL Page [phone] at 1401 All edits/amendments must be made on the electronic document DICTATION DATE: 04/14/19 1400 WASTE MANAGEMENT SPECIALIST: BOB 04/14/19 1400 RPT#: [id number] DC DATE: STATUS: ADM IN [facility] [address] [place] [address] END OF REPORT
--- NOTE | 2019-04-14 15:21 | NUR ---
OT NOTE: PT IS MOD I WITH ALL DYNAMIC TASKS. THANK YOU, LORI UNDERWOOD
[2019-04-14 21:15] VITALS: BP 120/78
--- NOTE | 2019-04-15 00:06 | NUR ---
0) met in hallway during chge of shift walking rounds with AUDREY WAKEFIELD STATES I'M GOING HOME MY SON IS ON HIS WAY UP HERE TO GET ME. ATTEMPTED TO EXPLAIN PROCESS OF GETTING APPROVAL FROM INSURANCE/[employer]HEALTH [employer] FOR HOME IV ABX.TAKES A DAY OR TWO WHICH MARCOS HAS BEEN WORKING ON. EXPLAINED THE SERIOUSNESS OF MRSA IN THE BLOOD.OUTSIDE TO SMOKE.CONTACT ISOLATION CONTINUES PATIENT NONCOMPLIANT.REFUSED MEDS STATES I'M GOING HOME. WILL CONTINUE TO MONIOR AND FOLLOW CURRENT PLAN OF CARE.
--- NOTE | 2019-04-15 03:21 | NUR ---
002O)NOT IN ROOM WHEN LIGHTING FIXTURE INSTALLER WENT IN TO TAKE VS.0200) STILL NOT BACK IN ROOM.SECURITY CALL STATES LOOKED ALL WAITING ROOMS OUTSIDE AND AROUND BUILDING NOT SEEN.0300) LOC MARSHALL RN HOUSESUPERVISOR NOTIFIED.SECURITY HERE WILL GO OUTSIDE AND LOOK AGAIN.
--- NOTE | 2019-04-15 04:49 | NUR ---
0400)ATTEMPTED TO CALL SON REC'D VOICE MAIL.0400)CALLED AGAIN SON STATES MY OTHER BROTHER MAY HAVE COME AND GOT HIM.ATTEMPTED TO CALL HIS BROTHER.NO ANSWER STATES WILL CONTINUE TO CALL BROTHER WHEN REACHES HIM WILL CALL US BACK BUCK.HOUSESUPERVISOR INFORMED AGAIN
--- NOTE | 2019-04-15 07:54 | NUR ---
PT LEFT AMA AROUND 0100 WITH PICC LINE IN PLACE. RECIEVED A CALL JUST NOW FROM SON-ROS MARCIAL [phone] THAT HE WOULD BRING HIM BACK THIS AM SO WE CAN RESUME CARE. ALL BELONGINGS LEFT AT HOSPITAL. MOVED BELONGINGS TO FOOD SERVICE DIRECTOR.
--- NOTE | 2019-04-15 16:47 | MORECARE ---
CASE MANAGEMENT DISCHARGE SUMMARY PATIENT: DIANE MARCIAL JR UNIT: [id number] ADM DATE: 04/03/19 AGE: 58 : 56 SEX: M ROOM/BED: D.2234 AUTHOR: TIMMY VERDIN PHYSICIAN: REFERRING PHYSICIAN: HALIMA PATTERSON MD DATE OF SERVICE: 04/15/19 Discharge Plan Patient Name: DIANE MARCIAL Facility: [facility]:[place] : 1960 Planned Disposition: Anticipated Discharge Date: Discharge Date: 04/15/2019 Expected LOS: Initial Reviewer: [id number] Initial Review Date: 04/07/2019 Generated: 04/15/19 5:47 pm Comments DCP- Discharge Planning Updated by [id number]: Mary Barillas on 04/14/19 12:[address] Patient Name: DIANE MARCIAL Admission Status: ER Accout number: [id number] Admission Date: 04-03-2019 : 1960 Admission Diagnosis:CUTANEOUS ABSCESS OF BUTTOCK Attending: HALIMA PATTERSON Current LOS: 11 Anticipated DC Date: Planned Disposition: Primary Insurance: WELLCARE MEDICARE ADV Discharge Planning Comments: RECEIVED CALL FROM [facility] DID NOT RECIEVE REFERRAL. CM REFAXED REFERRAL AT 1145 TODAY. CM TO FOLLOW AND ASSSIT. Hyperion Administrator: Mary Barillas Appended by Mary Barillas on 04/14/2019 12:00 CDT: PATIENT JUST CALLED ME AND SAYS HE ONLY HAS ONE MORE IV INFUSION. STATES HE DOES NOT WANT TO GO TO SNF, HE WANTS TO DC AND HIS SON WILL PICK HIM UP. CM TO FOLLOW AND ASSIST. Appended by Mary Barillas on 04/14/2019 13:51 CDT: [facility] CALLED ME AND DENIED PATIENT FOR SNF. DCP- Discharge Planning Updated by [id number]: Mary Barillas on 04/10/19 2:[address] Patient Name: DINAE MARCIAL Admission Status: ER Accout number: [id number] Admission Date: 04-03-2019 : 1960 Admission Diagnosis:CUTANEOUS ABSCESS OF BUTTOCK Attending: HALIMA PATTERSON Current LOS: 7 Anticipated DC Date: Planned Disposition: Primary Insurance: WELLCARE MEDICARE ADV Discharge Planning Comments: SEBASTIAN FROM [facility] DENIED SNF FOR PATIENT. CM CALLED NOAH AT [facility] AND FAXED HER INFO. PATIENT NEEDS SNF AND IS INTERESTED IN [facility]. CM TO FOLLOW AND ASSIST. Hyperion Administrator: Mary Barillas Appended by Mary Barillas on 04/10/2019 15:14 CDT: [facility] DENIED. FAXED TO [facility]. I ALSO CONTACTED CHAU COUGHLIN WITH [facility] AND SHE IS HELPING WITH HIS PLACEMENT. DCP- Discharge Planning Updated by [id number]: Emily Mccall on 04/08/19 2:[address] SPOKE WITH ROS MALONEY SON AND HE STATED THAT HE CAN NOT GO BACK TO HIS RENT HOUSE. HE WAS LIVING IN HIS RENT HOUSE, BUT HE IS NOT GOING TO BE ABLE TO WHEN HE IS DISCHARGED. ROS WAS GOING TO TALK TO HIS DAD. CM TO FOLLOW AND ASSIST DCP- Discharge Planning Updated by [id number]: Emily Mccall on 04/08/19 2:[address] Per Mary referral sent to [facility], waiting on auth/ safe discharge will attempt to try to call her son to see if patient can come to him after discharge from skilled [phone] the son's numbers DCP- Discharge Planning Updated by [id number]: Mary Barillas on 04/07/19 2:[address] Patient Name: DIANE MARCIAL Admission Status: ER Accout number: [id number] Admission Date: 04-03-2019 : 1960 Admission Diagnosis:CUTANEOUS ABSCESS OF BUTTOCK Attending: HALIMA PATTERSON Current LOS: 4 Anticipated DC Date: Planned Disposition: Primary Insurance: WELLCARE MEDICARE ADV Discharge Planning Comments: CM MET WITH PATIENT ABOUT DC PLANNING/NEEDS. DR PATTERSON RECOMMENDS SNF FOR WOUND CARE AND IV ANTIBIOTICS. REFERRAL SENT TO THE [facility]. WAITING FOR CALL BACK. ORDER FOR IV MEDS PLACED ON CHART. SHAHID SIGNED FOR THE [facility]. CM TO FOLLOW AND ASSIST. Hyperion Administrator: Mary Barillas Appended by Mary Barillas on 04/07/2019 15:36 CDT: TALKED WITH MARGAUX AND HE IS DENIED BY THE [facility]. REFERRAL SENT TO [facility]. WAITING FOR CALL BACK. DCPIA - Discharge Planning Initial Assessment Updated by [id number]: Mary Barillas on 04/07/19 2:34 pm * Is the patient Alert and Oriented? Yes * ADLs Independent * Other Equipment 02 AND NEBS * Community resources currently utilized None * Additional services required to return to the preadmission environment? Yes * Can the patient safely return to the preadmission environment? No * Has this patient been hospitalized within the prior 30 days at any hospital? No Coverage Notice Reviewer: [id number] - Mary Barillas Notice Issued Date-Time: 04/07/2019 12:42 Notice Type: Patient Choice Letter Notice Delivered To: Patient Relationship to Patient: Information Security Officer Name: Delivery Method: HAND - Hand Delivered Yesica Days: Prior Verbal Notification: Recipient Understood Notice: Yes Recipient Signature: Yes Med Rec Note Co-signed by Attending: Coverage Notice Comment: SHAHID ANY SNF THAT ACCEPTS HIS INURANCE. Last DP export: 04/14/19 1:01 p Patient Name: DIANE MARCIAL Page [id number] at 1647 All edits/amendments must be made on the electronic document DICTATION DATE: 04/15/191646 INTERNATIONAL FIRST OFFICER: BOB 04/15/191646 RPT#: [id number] DC DATE:04/15/19 STATUS: DIS IN [facility] [address] [place] [address] END OF REPORT
--- NOTE | 2019-04-15 17:25 | NUR ---
PT RETURNED TO HOSPITAL TO HAVE PICC LINE REMOVED. UPOM INSPECTION PICC LINE IS NOT IN PLACE. BOTH ARMS ASSESSED. NO PICC LINE NOTED. PATIENT STATED THAT IT FELL OUT.
--- NOTE | 2019-05-23 11:37 | DS ---
PATIENT:DIANE MARCIAL JR :56 MEDICAL RECORD: [id number] DISCHARGE SUMMARY ADMISSION DATE: 04/03/19 DISCHARGE DATE: 04/15/19 ADMISSION DIAGNOSES: 1. Right buttock and right scrotal abscess. 2. Chronic obstructive pulmonary disease. DISCHARGE DIAGNOSES: 1. Right buttock and right scrotal abscess. 2. Chronic obstructive pulmonary disease. 3. Methicillin-resistant Staphylococcus aureus bacteremia. PROCEDURES: 1. I&D of the scrotal and buttock abscess on 04/04/2019. 2. Midline placement on 04/08/2019. REPORT OF HOSPITALIZATION: The patient was admitted to the hospital through the ER with swelling and tenderness in the right buttock and scrotum. This had accelerated quickly, so the patient was admitted and placed on IV antibiotics. The patient is homeless with schizophrenia. He was taken to the operating room the following day where he underwent an incision and drainage with cultures taken. During his hospitalization, he had blood cultures performed in the ER and these results came back with methicillin-resistant Staphylococcus aureus bacteremia. The patient had an echo performed, which did not show any evidence of vegetations. A midline was placed and he was maintained on IV antibiotics. Multiple attempts were made for placement for this patient, but we were never able to place him anywhere. He eventually got about 11 days' worth of antibiotics done and the patient left AMA. TRANSINT:[id number] Voice Confirmation ID: [id number] DOCUMENT ID: [id number] HALIMA PATTERSON MD at 1137 CC: [id number] DICTATION DATE: 05/15/19 1319 PLASTIC BOAT BUFFER: 05/16/19 0137 DIS IN 04/15/19 [facility] [address] [place] [address]
== END 2019-04-15 01:00 | disposition home or self-care (01) | DRG 579 ==
LOC: D.ER 17:54 → D.MS 22:54
PROVIDERS: Family Medicine; ADMIT Surgery; ATTEND Surgery
PROC: 0J990ZZ Drainage of Buttock Subcutaneous Tissue and Fascia, Open Approach (ICD-10-PCS; principal; 2019-04-04 11:45)
PROC: 05HB33Z Insertion of Infusion Device into Right Basilic Vein, Percutaneous Approach (ICD-10-PCS; 2019-04-08)
DX: L02.31 Cutaneous abscess of buttock (principal); A41.02 Sepsis due to Methicillin resistant Staphylococcus aureus; L03.315 Cellulitis of perineum; N49.2 Inflammatory disorders of scrotum; J44.9 Chronic obstructive pulmonary disease, unspecified

== ENCOUNTER 2019-09-05 23:22 | Emergency (ER) | payer MEDICARE, MEDICAID ==
[~2019-09-05] VITALS: Ht 182.9 cm; Wt 81.8 kg
[~2019-09-05 23:22] MED LIST changes: +FOLIC ACID1 MG PO; +GEMFIBROZIL600 MG PO; +LINZESS145 MCG PO; +MOBIC7.5 MG PO; +PEPCID AC20 MG PO; +PREDNISONE10 MG PO; +VALIUM10 MG PO
[2019-09-05 23:24] VITALS: Ht 182.9 cm; Wt 81.8 kg
[2019-09-05 23:45] LABS: BASOPHILS 0.3 % (0-2); EOSINOPHILS 6.1 % (0-7); HEMOGLOBIN 15.7 g/dL (13.5-17.5); IMMATURE GRANULOCYTES 0.2 % (0-5); LYMPHOCYTES 25.6 % (15-50); MCH 29.2 pg (26.0-34.0); MCHC 34.1 g/dL (31.0-37.0); MCV 85.5 fL (80.0-100.0); MONOCYTES 10.9 % (2-11); NEUTROPHILS 56.9 % (40-80); PLATELET COUNT 196 10x3/uL (130-400); RBC 5.38 10x6/uL (4.20-6.10); RDW 13.5 % (11.5-14.5); WBC 9.1 10x3/uL (4.8-10.8)
[2019-09-05 23:58] LABS: APTT 32.6 SECONDS (22.8-39.4); INR 1.12 (0.85-1.17); PROTIME 14.4 SECONDS (11.6-15.0)
[2019-09-06 00:03] LABS: CALC OSMOLALITY 282 mosm/kg (275-300); CARBON DIOXIDE 32.4 mmol/L (21.0-32.0); CHLORIDE - SERUM 102 mmol/L (98-107); CREATININE - SERUM 1.1 mg/dL (0.6-1.3); GLUCOSE 116 mg/dL (74-106); POTASSIUM - SERUM 3.6 mmol/L (3.5-5.1); SODIUM 141 mmol/L (136-145); UREA NITROGEN 15 mg/dL (7-18); eGFR NON AFRICAN AMERICAN 72 mL/min (90-120)
[2019-09-06 00:19] LABS: ALBUMIN 3.5 g/dL (3.4-5.0); ALKALINE PHOSPHATASE 88 U/L (46-116); ALT (SGPT) 20 U/L (10-68); CKMB 2.1 U/L (0.0-3.6); CREATINE KINASE 91 UL (21-232); PRO BNP 171 pg/mL (0-125); PROTEIN - SERUM 6.5 g/dL (6.4-8.2); TROPONIN-I < 0.017 ng/mL (0.000-0.060)
[2019-09-06 01:16] LABS: APPEARANCE CLEAR (CLEAR); BILIRUBIN NEGATIVE (NEGATIVE); COLOR YELLOW (YELLOW); GLUCOSE NEGATIVE (NEGATIVE); KETONE NEGATIVE (NEGATIVE); NITRITE NEGATIVE (NEGATIVE); PROTEIN NEGATIVE (NEGATIVE); SPECIFIC GRAVITY 1.015 (1.005-1.020); UROBILINOGEN NORMAL (NORMAL)
[2019-09-06 01:22] LABS: UDS - AMPHET POSITIVE QUAL (NEGATIVE); UDS - BARB NEGATIVE QUAL (NEGATIVE); UDS - BENZO NEGATIVE QUAL (NEGATIVE); UDS - COCAINE NEGATIVE QUAL (NEGATIVE); UDS - OPIATE NEGATIVE QUAL (NEGATIVE); UDS - PCP NEGATIVE QUAL (NEGATIVE); UDS - THC NEGATIVE QUAL (NEGATIVE)
[2019-09-06 02:05] VITALS: BP 125/72
== END 2019-09-06 02:06 | disposition home or self-care (01) ==
LOC: D.ER 23:22
PROVIDERS: Family Medicine
DX: R05 Cough (principal); R06.02 Shortness of breath; J43.9 Emphysema, unspecified; Z72.0 Tobacco use

== ENCOUNTER 2019-09-19 22:05 | Inpatient (IN) | payer MEDICARE, MEDICAID ==
[~2019-09-19] VITALS: Ht 182.9 cm; Wt 84.1 kg
[2019-09-19 22:34] LABS: HEMOGLOBIN 14.9 g/dL (13.5-17.5); MCH 29.7 pg (26.0-34.0); MCHC 33.9 g/dL (31.0-37.0); MCV 87.6 fL (80.0-100.0); MEAN PLATELET VOLUME 8.7 fL (7.4-10.4); PLATELET COUNT 179 10x3/uL (130-400); RBC 5.02 10x6/uL (4.20-6.10); WBC 24.1 10x3/uL (4.8-10.8)
[2019-09-19 22:40] LABS: CREATININE - SERUM 1.1 mg/dL (0.6-1.3); POTASSIUM - SERUM 3.7 mmol/L (3.5-5.1)
[2019-09-19 22:47] LABS: ALBUMIN 3.2 g/dL (3.4-5.0); BILIRUBIN - TOTAL 1.09 mg/dL (0.2-1.3); LYMPHOCYTES 4 % (15-50); MONOCYTES 2 % (2-11); NEUTROPHILS 94 % (40-80); PLATELET ESTIMATE NORMAL; PROTEIN - SERUM 7.3 g/dL (6.4-8.2)
[2019-09-19 22:51] LABS: ANION GAP 11.1 mmol/L (8-16); CALCIUM 8.7 mg/dL (8.5-10.1); CARBON DIOXIDE 28.6 mmol/L (21.0-32.0)
--- NOTE | 2019-09-19 23:35 | NUR ---
LARGE KNIFE SENT WITH SECURITY PRIOR TO ADMISSION.
--- NOTE | 2019-09-19 23:57 | NUR ---
POCKET KNIFE ALSO SENT WITH SECURITY, THREE BAGS FULL OF BLACK BOOTS AND BLACK JACKET WITH SWEAT SHIRT AND NECKLACE AND PAPERS SENT WITH PATIENT WELL A LARGE WALKING STICK.
[2019-09-20] VITALS (7 sets, daily range): BP systolic 85–121; BP diastolic 48–75; Ht 182.9 cm; Wt 84.1 kg
--- NOTE | 2019-09-20 00:01 | NUR ---
PATIENT TO THE FLOOR, PATIENT ABLE TO GET OUT OF WHEELCHAIR AND WALK TO HOSPITAL BED. PATIENT STATES HE HAS NO EATEN AND WOULD LIKE SOMETHING TO EAT. CALL LIGHT WITHIN REACH AND BED IN LOWEST LOCKED POSITION. SIDE RAILS UP, BED ALARM ON.
--- NOTE | 2019-09-20 04:09 | NUR ---
PIN WORKER CAME AND REPORTED THAT PATIENT STATES HE HAS A HEADACHE AND A FEVER OR 101.0 TREATED PER MAR.
[2019-09-20 04:58] LABS: BASOPHILS 0 % (0-2); EOSINOPHILS 0 % (0-7); HEMATOCRIT 37.4 % (42.0-54.0); HEMOGLOBIN 12.6 g/dL (13.5-17.5); IMMATURE GRANULOCYTES 0.4 % (0-5); LYMPHOCYTES 3.4 % (15-50); MCH 29.2 pg (26.0-34.0); MCHC 33.7 g/dL (31.0-37.0); MCV 86.8 fL (80.0-100.0); MONOCYTES 6.9 % (2-11); NEUTROPHILS 89.3 % (40-80); PLATELET COUNT 180 10x3/uL (130-400); RBC 4.31 10x6/uL (4.20-6.10); WBC 20.7 10x3/uL (4.8-10.8)
[2019-09-20 05:04] LABS: APTT 37.8 SECONDS (22.8-39.4)
[2019-09-20 05:05] LABS: D-DIMER-QUANTITATIVE 1.01 ug/mLFEU (0.20-0.54)
[2019-09-20 05:08] LABS: INR 1.35 (0.85-1.17); PROTIME 16.6 SECONDS (11.6-15.0)
[2019-09-20 05:22] LABS: ANION GAP 10.9 mmol/L (8-16); CALCIUM 7.9 mg/dL (8.5-10.1); CARBON DIOXIDE 25.7 mmol/L (21.0-32.0); CREATININE - SERUM 1.1 mg/dL (0.6-1.3); MAGNESIUM - SERUM 1.6 mg/dL (1.8-2.4); PHOSPHOROUS 2.2 mg/dL (2.5-4.9); POTASSIUM - SERUM 3.6 mmol/L (3.5-5.1)
--- NOTE | 2019-09-20 08:14 | NUR ---
PATIENT IS ALERT AND AWAKE HE IS SITTING UP IN BED EATTING BREAKFAST. HE HAS A LOW B/P , PAGING TRAVEL REGISTERED NURSE PACU AREA SECRETARY. DENIES ANY NEEDS AT THIS TIME. BEDSIDE SHIFT COMPLETED.
--- NOTE | 2019-09-20 08:32 | NUR ---
B/P WAS 90/57 , AND WITH MANUAL CUFF 95/64. PAGED CLAUDIA MAURER AND SHE ORDERED A 500ML BOLUS IF B/P LESS THEN 100. GIVING BOLUS NOW.WILL CONTINUE TO MONITOR.
--- NOTE | 2019-09-20 11:45 | NUR ---
PATIENT IS RESTING QUIETLY AT THIS TIME. HE HAS A BAD COUGH.
[2019-09-20 16:40] LABS: APPEARANCE CLEAR (CLEAR); BILIRUBIN NEGATIVE (NEGATIVE); COLOR YELLOW (YELLOW); GLUCOSE 100 mg/dL (NEGATIVE); KETONE NEGATIVE (NEGATIVE); NITRITE NEGATIVE (NEGATIVE); PROTEIN NEGATIVE (NEGATIVE); SPECIFIC GRAVITY 1.005 (1.005-1.020); UROBILINOGEN NORMAL (NORMAL)
--- NOTE | 2019-09-20 20:04 | NUR ---
REPORT RECIEVED AND ROUNDING COMPLETE. PATIENT LAYING IN HIGH ZEPEDA, SLEEPING AND AROUSED EASILY TO TALKING. PATIENT STATES HE IS JUST TIRED AND CANT SEEM TO GET ENOUGH SLEEP. PATIENT IS WEARING NASAL CANNULA WITH O2 SET ON 4L. PATIENT HAS A LEFT AC PIV THAT IS PATENT ANF RUNNING FLUIDS AT THIS TIME. PATIENT STATES HE HAS NO NEEDS AT THIS TIME. PATIENT SHOWS NO S/SX OF DISTRESS. CALL LIGHT WITHIN REACH AND BED IN LOWEST LOCKED POSITION.
--- NOTE | 2019-09-21 02:36 | NUR ---
WENT OVER PATIENT MEDICATION AND HE STATED HE HASNT TAKEN ANY MEDICATIONS SINCE HE LEFT THE HOSPITAL ([facility]) BECAUSE HE HASNT HAD A MEANS TO GET THEM. HE STATES HE DOSENT KNOW WHAT HE IS SUPPOSED TO BE TAKING ANYMORE BECAUSE SO MANY DOCTORS HAVE CHANGED THEM.
--- NOTE | 2019-09-21 03:13 | NUR ---
PATIENT A SANDWICH, GAVE PATIENT A SANDWICH. NO OTHER NEEDS AT THIS TIME.
[2019-09-21 04:59] VITALS: BP 126/90
[2019-09-21 05:03] LABS: BASOPHILS 0 % (0-2); EOSINOPHILS 0 % (0-7); HEMATOCRIT 36.4 % (42.0-54.0); HEMOGLOBIN 12.1 g/dL (13.5-17.5); IMMATURE GRANULOCYTES 0.4 % (0-5); LYMPHOCYTES 3.9 % (15-50); MCH 28.7 pg (26.0-34.0); MCHC 33.2 g/dL (31.0-37.0); MCV 86.5 fL (80.0-100.0); MEAN PLATELET VOLUME 9.1 fL (7.4-10.4); MONOCYTES 2.3 % (2-11); NEUTROPHILS 93.4 % (40-80); PLATELET COUNT 183 10x3/uL (130-400); RBC 4.21 10x6/uL (4.20-6.10); RDW 13.8 % (11.5-14.5)
[2019-09-21 05:06] LABS: WBC 15.1 10x3/uL (4.8-10.8)
[2019-09-21 05:32] LABS: CALC OSMOLALITY 290 mosm/kg (275-300); CALCIUM 8.5 mg/dL (8.5-10.1); CARBON DIOXIDE 26.6 mmol/L (21.0-32.0); CHLORIDE - SERUM 109 mmol/L (98-107); GLUCOSE 188 mg/dL (74-106); PHOSPHOROUS 1.8 mg/dL (2.5-4.9); POTASSIUM - SERUM 3.9 mmol/L (3.5-5.1); SODIUM 142 mmol/L (136-145); UREA NITROGEN 22 mg/dL (7-18); eGFR NON AFRICAN AMERICAN 81 mL/min (90-120)
--- NOTE | 2019-09-21 05:32 | NUR ---
I have reviewed this patient and I concur with the Shift Assessment completed by the Licensed Practical Nurse today this shift.
--- NOTE | 2019-09-21 07:20 | NUR ---
RECIEVE REPORT. RESTING IN BED WITH EYES CLOSED. NO SIGNS OF DISTESS. CONTINUE PLAN OF CARE AND SAFETY PRECAUTIONS.
[2019-09-21 09:50] VITALS: BP 102/57
[2019-09-21 14:15] VITALS: BP 107/57
[2019-09-21 18:32] VITALS: BP 105/51
--- NOTE | 2019-09-21 19:22 | NUR ---
RECEIVED UP IN BED WITH EYES OPEN AND TV ON. SPOUSE AT BEDSIDE. ALERT AND ORIENTED X4. REMAINS BEDFAST. NOT WEARING O2@ THIS TIME. IV TO LEFT AC WITH NS AT 100CC/HR. TELEMETRY IN PLACE. DENIES ANY NEEDS AT THIS TIME.
[2019-09-21 20:00] VITALS: BP 102/48
[2019-09-22] VITALS (7 sets, daily range): BP systolic 105–127; BP diastolic 54–71
[2019-09-22 04:18] LABS: BASOPHILS 0 % (0-2); EOSINOPHILS 0 % (0-7); HEMOGLOBIN 11.8 g/dL (13.5-17.5); IMMATURE GRANULOCYTES 0.4 % (0-5); LYMPHOCYTES 5.2 % (15-50); MCH 28.9 pg (26.0-34.0); MCHC 32.8 g/dL (31.0-37.0); MEAN PLATELET VOLUME 9.2 fL (7.4-10.4); MONOCYTES 3.9 % (2-11); NEUTROPHILS 90.5 % (40-80); RBC 4.09 10x6/uL (4.20-6.10)
[2019-09-22 04:40] LABS: PLATELET COUNT 237 10x3/uL (130-400)
[2019-09-22 04:44] LABS: CALC OSMOLALITY 299 mosm/kg (275-300); CALCIUM 8.2 mg/dL (8.5-10.1); CARBON DIOXIDE 27.8 mmol/L (21.0-32.0); CHLORIDE - SERUM 108 mmol/L (98-107); MAGNESIUM - SERUM 1.8 mg/dL (1.8-2.4); POTASSIUM - SERUM 4.1 mmol/L (3.5-5.1); SODIUM 143 mmol/L (136-145); UREA NITROGEN 23 mg/dL (7-18); eGFR NON AFRICAN AMERICAN 81 mL/min (90-120)
[2019-09-22 04:46] LABS: GLUCOSE 288 mg/dL (74-106); PHOSPHOROUS 2.3 mg/dL (2.5-4.9)
[2019-09-22 09:36] LABS: % SATURATION 42 % (15-55); IRON 84 ug/dl (35-150); TOTAL IRON BIND CAPACITY 197 ug/dl (260-445); UNSAT IRON BIND CAPACITY 113 ug/dl (150-375)
--- NOTE | 2019-09-22 15:28 | MORECARE ---
CASE MANAGEMENT DISCHARGE SUMMARY PATIENT: DIANE MARCIAL JR UNIT: [id number] ADM DATE: 09/19/19 AGE: 58 : 56 SEX: M ROOM/BED: D.2103 AUTHOR: TIMMY VERDIN PHYSICIAN: REFERRING PHYSICIAN: MUMTAZ LUTHER MD DATE OF SERVICE: 09/22/19 Discharge Plan Patient Name: DIANE MARCIAL Facility: [facility]:[place] : 1960 Planned Disposition: Anticipated Discharge Date: Discharge Date: Expected LOS: Initial Reviewer: [id number] Initial Review Date: 09/22/2019 Generated: 09/22/19 4:28 pm Patient Name: DIANE MARCIAL Page [phone] at 1528 All edits/amendments must be made on the electronic document DICTATION DATE: 09/22/19 1528 RN ONCOLOGY RESEARCH: BOB 09/22/19 1528 RPT#: [id number] DC DATE: STATUS: ADM IN [facility] [address] [place] [address] END OF REPORT
--- NOTE | 2019-09-22 15:28 | CN ---
PATIENT NAME:DIANE MARCIAL JR MEDICAL RECORD: [id number] : 56 LOCATION:D.M2 D.2103 ADMIT DATE: 09/19/19 ACCOUNT: [id number] CONSULTING PHYSICIAN: SUNDAR REN MD REFERRING PHYSICIAN: MUMTAZ LUTHER MD DATE OF CONSULTATION: 09/21/2019 IDENTIFYING DATA: The patient is 58 years old and he is admitted to the hospital on a voluntary basis. CHIEF COMPLAINT: Pneumonia. HISTORY OF PRESENT ILLNESS: The patient has pneumonia and has been admitted to the hospital for evaluation and treatment. He apparently was released from inpatient mental health care at [facility] 6 days ago. He reportedly has a long history of mental illness and has been diagnosed with schizophrenia. He reports using methamphetamine on a regular basis. He denies that he would seek to harm himself or others and he denies auditory and visual hallucinations, but he is clearly paranoid and disorganized in his thought processes. He is trying to explain some story about some people that he has had contact with and how he has tried to help him and how they have rejected it, but it is so disorganized that I am unable to follow what he is saying. He is clearly showing loose associations. He is concrete to abstraction and I believe he is paranoid in a way that is clearly psychotic and not in touch with reality. ASSESSMENT: 1. Schizophrenia by history. 2. Methamphetamine abuse. PLAN: The patient will be started on Geodon for its antipsychotic effects. He will also be given Depakote for mood stabilization. I do not see evidence of acute or direct dangerousness and he is an established patient with [facility]. Furthermore, he is receiving steroids, which can affect his mood and perceptual processes. I would recommend outpatient followup appointment with his outpatient psychiatrist once medically stabilized and discharged. If his condition worsens or shows no improvement, he will likely need to be referred back to [facility] for additional mental health stabilization. TRANSINT:[id number] Voice Confirmation ID: [id number] DOCUMENT ID: [id number] SUNDAR REN MD at 1528 CC: [id number] DICTATION DATE: 09/21/19 1005 DIRECTOR TOXICOLOGY: 09/21/19 1054 ADM IN [facility] [id number] [place] [address]
--- NOTE | 2019-09-22 15:37 | MORECARE ---
CASE MANAGEMENT DISCHARGE SUMMARY PATIENT: DIANE MARCIAL JR UNIT: [id number] ADM DATE: 09/19/19 AGE: 58 : 56 SEX: M ROOM/BED: D.2103 AUTHOR: LAMBERT,DOC PHYSICIAN: REFERRING PHYSICIAN: MUMTAZ LUTHER MD DATE OF SERVICE: 09/22/19 Discharge Plan Patient Name: DIANE MARCIAL Facility: [facility]:[place] : 1960 Planned Disposition: Anticipated Discharge Date: Discharge Date: Expected LOS: Initial Reviewer: [email or web address] Initial Review Date: 09/22/2019 Generated: 09/22/19 4:37 pm Comments DCP- Discharge Planning Updated by [id number]: Gayle Hills on 09/22/19 2:[address] Patient Name: DIANE MARCIAL Admission Status: ER Accout number: [id number] Admission Date: 09-19-2019 : 1960 Admission Diagnosis: Attending: ASHKAN, Current LOS: 3 Anticipated DC Date: Planned Disposition: Primary Insurance: WELLCARE MEDICARE ADV Discharge Planning Comments: CM met with patient to complete initial dc planning assessment. CM educated patient on the CM role and verbal consent given by patient to complete assessment. CM verified patient's address, phone number, and emergency contact phone numbers. Patient lives at home in a camper at his son's house. States his living conditions are poor. Provided patient with information for [employer], and [facility]. Patient states he has attempted both places and was unsuccessful. States At discharge patient plans to return to his camper, until he can find other living arrangements. CM discussed availability of home health, rehab services, and medical equipment. Patient denied known discharge needs at this time. Transportation provider at discharge will be patient son. CM will continue to follow and will assist as needed with dc plans/needs. IMM delivered, explained, signed by the patient, and placed in his chart. Signed form also left with patient. Beekeeper Farmer: Gayle MUNOZ,CM DCPIA - Discharge Planning Initial Assessment Updated by [id number]: Gayle Hills on 09/22/19 3:29 pm * Is the patient Alert and Oriented? Yes * How many steps to enter\exit or inside your home? 4/0 * PCP UNKNOWN * Pharmacy UNKNOWN * Preadmission Environment Home with Family * ADLs Independent * Equipment Cane * List name and contact numbers for known caregivers / representatives who currently or will assist patient after discharge: PATIENT STATES HE HAS KNOWN ONE TO ASSIST HIM AT DISCHARGE * Verbal permission to speak to the caregivers and representatives has been obtained from the patient. Yes * Community resources currently utilized None * Additional services required to return to the preadmission environment? No * Can the patient safely return to the preadmission environment? Yes * Has this patient been hospitalized within the prior 30 days at any hospital? No Coverage Notice Reviewer: [email or web address] Charli [place] Notice Issued Date-Time: 09/22/2019 15:20 Notice Type: IM Discharge Notice Notice Delivered To: Patient Relationship to Patient: Call Worker Name: Delivery Method: HAND - Hand Delivered Yesica Days: Prior Verbal Notification: Recipient Understood Notice: Yes Recipient Signature: Yes Med Rec Note Co-signed by Attending: Coverage Notice Comment: Last DP export: 09/22/19 2:28 p Patient Name: DIANE MARCIAL Page [id number] at 1537 All edits/amendments must be made on the electronic document DICTATION DATE: 09/22/191536 JEWEL HOLE FINISH OPENER: BOB 09/22/19 153 RPT#: [id number] DC DATE: STATUS: ADM IN [facility] [address] [place] [address] END OF REPORT
--- NOTE | 2019-09-22 16:42 | NUR ---
LEFT FLOOR AGAINST NURSING INSTRUCTIONS.
--- NOTE | 2019-09-22 19:23 | NUR ---
PT EXPRESSES LOTS OF NEEDS AND SEEMS DISGRUNTALED ABOUT SEVICE BUT IS ASKING HOW HE CAN STAY MORE DAYS HS NOTIFIED ALERT AND OX4 BED IS LOW AND LOCKED AND CALL LIGHT IS IN REACH
--- NOTE | 2019-09-23 03:46 | NUR ---
I have reviewed this patient and I concur with the Shift Assessment completed by the Licensed Practical Nurse today this shift.
[2019-09-23 04:30] VITALS: BP 123/73
[2019-09-23 06:01] LABS: CALC OSMOLALITY 294 mosm/kg (275-300); CALCIUM 8.3 mg/dL (8.5-10.1); CARBON DIOXIDE 32.1 mmol/L (21.0-32.0); CHLORIDE - SERUM 105 mmol/L (98-107); GLUCOSE 259 mg/dL (74-106); MAGNESIUM - SERUM 1.9 mg/dL (1.8-2.4); PHOSPHOROUS 2.8 mg/dL (2.5-4.9); POTASSIUM - SERUM 4.4 mmol/L (3.5-5.1); SODIUM 142 mmol/L (136-145); UREA NITROGEN 22 mg/dL (7-18); eGFR NON AFRICAN AMERICAN 81 mL/min (90-120)
[2019-09-23 06:02] LABS: BASOPHILS 0 % (0-2); EOSINOPHILS 0 % (0-7); HEMATOCRIT 35.5 % (42.0-54.0); HEMOGLOBIN 11.6 g/dL (13.5-17.5); IMMATURE GRANULOCYTES 1.3 % (0-5); LYMPHOCYTES 10.1 % (15-50); MCH 28.9 pg (26.0-34.0); MCHC 32.7 g/dL (31.0-37.0); MCV 88.3 fL (80.0-100.0); MONOCYTES 4.3 % (2-11); NEUTROPHILS 84.3 % (40-80); RBC 4.02 10x6/uL (4.20-6.10); RDW 14.1 % (11.5-14.5)
[2019-09-23 06:22] LABS: PLATELET COUNT 303 10x3/uL (130-400); WBC 6.7 10x3/uL (4.8-10.8)
--- NOTE | 2019-09-23 07:20 | NUR ---
RECIEVE REPORT. RESTING IN BED WITH EYES CLOSED. RESPIRATIONS NONLABORED. NO SIGNS OF DISTRESS. CONTINUE PLAN OF CARE AND SAFETY PRECAUTIONS.
[2019-09-23 08:32] VITALS: BP 134/70
--- NOTE | 2019-09-23 09:33 | NUR ---
ALERT AND ORIENTED X4. REQUEST IV TO BE UNHOOKED TO GO OUTSIDE. INSTRUCTED TO STAY ON UNIT AND IV INFUSION REMAINS INFUSING. PATIENT SEEN GETTING ON ELEVATOR AND REDIRECTED BACK TO ROOM.
[2019-09-23] MEDS ORDERED: ZITHROMAX250 MG PO (11:32)
[2019-09-23] MEDS ORDERED: PROTONIX40 MG PO (11:32)
[2019-09-23] MEDS ORDERED: OMNICEF300 MG PO (11:32)
[2019-09-23] MEDS ORDERED: GEODON20 MG PO (11:33)
[2019-09-23] MEDS ORDERED: DEPAKOTE500 MG PO (11:35)
--- NOTE | 2019-09-23 12:23 | PN ---
PATIENT:DIANE MARCIAL JR MEDICAL RECORD: [id number] LOCATION:D. D.210 ADMISSION DATE: 09/19/19 PROGRESS NOTE DATE OF SERVICE: 09/22/2019 The patient was seen for psychiatric consultation on September 21, 2019. The dictated note is in the medical record. I see from today's progress note that the psychiatric consult is pending. If there is something that in addition to that needs to be addressed please contact me or if there are other behaviors, please contact me and I will be happy to address them. However, I think the consultation was done on September 21 and the medications that were started are likely to suffice. Please contact me if I can be of further assistance. TRANSINT:[id number] Voice Confirmation ID: [id number] DOCUMENT ID: [id number] SUNDAR REN MD at 1223 CC: [id number] DICTATION DATE: 09/22/19 1550 BEHAVIORAL HEALTH ASSISTANT: 09/22/[address]M IN [facility] [address] [place] [address]
--- NOTE | 2019-09-23 12:30 | NUR ---
UPON DISCHARGE, PATIENT HAS NOT HAD A FLU SHOT. WHEN QUESTIONED AT DISCHARGE, HR REFUSED IT.
--- NOTE | 2019-09-23 14:02 | NUR ---
ALERT AND ORIENTED X4. SITTING STANDING UP IN ROOM TALKING ON PHONE. REFUSING TO LEAVE. PERSON BELONGINGS RETRIEVED FROM [facility]. DISCHARGE INSTRUCTIONS GIVEN VERBALLY AND WRITTEN. DISCHARGE PAPERS SIGNED ON CHART. SECURITY CALLED. PRODUCTION DRILLING MACHINE OPERATOR TO ER ENTERANCE.
--- NOTE | 2019-09-24 08:37 | MORECARE ---
CASE MANAGEMENT DISCHARGE SUMMARY PATIENT: DIANE MARCIAL JR UNIT: [id number] ADM DATE: 09/19/19 AGE: 58 : 56 SEX: M ROOM/BED: D.2105 AUTHOR: LAMBERT,DOC PHYSICIAN: REFERRING PHYSICIAN: MUMTAZ LUTHER MD DATE OF SERVICE: 09/24/19 Discharge Plan Patient Name: DIANE MARCIAL Facility: [facility]:[place] : 1960 Planned Disposition: Home Anticipated Discharge Date: 09/23/19 Discharge Date: 09/23/2019 Expected LOS: 4 Initial Reviewer: [email or web address] Initial Review Date: 09/22/2019 Generated: 09/24/19 9:37 am Comments DCP- Discharge Planning Updated by [id number]: Gayle Hills on 09/22/19 2:[address] Patient Name: DIANE MARCIAL Admission Status: ER Accout number: [id number] Admission Date: 09-19-2019 : 1960 Admission Diagnosis: Attending: ASHKAN, Current LOS: 3 Anticipated DC Date: Planned Disposition: Primary Insurance: [employer] ADV Discharge Planning Comments: CM met with patient to complete initial dc planning assessment. CM educated patient on the CM role and verbal consent given by patient to complete assessment. CM verified patient's address, phone number, and emergency contact phone numbers. Patient lives at home in a camper at his son's house. States his living conditions are poor. Provided patient with information for [facility], and [facility]. Patient states he has attempted both places and was unsuccessful. States At discharge patient plans to return to his camper, until he can find other living arrangements. CM discussed availability of home health, rehab services, and medical equipment. Patient denied known discharge needs at this time. Transportation provider at discharge will be patient son. CM will continue to follow and will assist as needed with dc plans/needs. IMM delivered, explained, signed by the patient, and placed in his chart. Signed form also left with patient. Color Maker: Gayle MUNOZ,CM DCPIA - Discharge Planning Initial Assessment Updated by [id number]: Gayle Hills on 09/22/19 3:29 pm * Is the patient Alert and Oriented? Yes * How many steps to enter\exit or inside your home? 4/0 * PCP UNKNOWN * Pharmacy UNKNOWN * Preadmission Environment Home with Family * ADLs Independent * Equipment Cane * List name and contact numbers for known caregivers / representatives who currently or will assist patient after discharge: PATIENT STATES HE HAS KNOWN ONE TO ASSIST HIM AT DISCHARGE * Verbal permission to speak to the caregivers and representatives has been obtained from the patient. Yes * Community resources currently utilized None * Additional services required to return to the preadmission environment? No * Can the patient safely return to the preadmission environment? Yes * Has this patient been hospitalized within the prior 30 days at any hospital? No Coverage Notice Reviewer: [id number] Charli Hills Notice Issued Date-Time: 09/22/2019 15:20 Notice Type: IM Discharge Notice Notice Delivered To: Patient Relationship to Patient: Cone Runner Name: Delivery Method: HAND - Hand Delivered Yesica Days: Prior Verbal Notification: Recipient Understood Notice: Yes Recipient Signature: Yes Med Rec Note Co-signed by Attending: Coverage Notice Comment: Last DP export: 09/22/19 2:37 p Patient Name: DIANE MARCIAL Page [phone] at 0837 All edits/amendments must be made on the electronic document DICTATION DATE: 09/24/19836 ANALYST: BOB [birth year] RPT#: [id number] DC DATE:09/23/19 STATUS: DIS IN [facility] [address] [place] [address] END OF REPORT
--- NOTE | 2019-09-24 08:44 | MORECARE ---
CASE MANAGEMENT DISCHARGE SUMMARY PATIENT: DIANE MARCIAL JR UNIT: [id number] ADM DATE: 09/19/19 AGE: 58 : 56 SEX: M ROOM/BED: D.2103 AUTHOR: LAMBERT,DOC PHYSICIAN: REFERRING PHYSICIAN: MUMTAZ LUTHER MD DATE OF SERVICE: 09/24/19 Discharge Plan Patient Name: DIANE MARCIAL Facility: [facility]:[place] : 1960 Planned Disposition: Home Anticipated Discharge Date: 09/23/19 Discharge Date: 09/23/2019 Expected LOS: 4 Initial Reviewer: [email or web address] Initial Review Date: 09/22/2019 Generated: 09/24/19 9:43 am Comments DCP- Discharge Planning Updated by [email or web address]: Grady Keen on 09/24/19 7:[address] Patient Name: DIANE MARCIAL Encounter No: [id number] : 1960 Primary Insurance: [employer] ADV Anticipated DC Date: 09-23-2019 Planned Disposition: Home DCP follow-up note: LATE ENTRY FROM 09-23-19, [id number] HOURS; CM INFORMED BY BEDSIDE NURSE THAT PT'S FAMILY HAS STATED PT HAS BEEN NON COMPLIANT AND ONE SON WILL NO LONGER ASSIST PT, PT WAITING ON HIS OTHER SON TO CALL REGARDING TELEPHONE MAINTAINER FOR TRANSPORT HOME. CM MET WITH PT IN ROOM TO DISCUSS DISCHARGE PLANNING AND NEEDS. PT ANGRY THAT HIS FAMILY WILL NOT HELP HIM, PT STATES HE WANTED MORE TIME TO PLAN THINGS OUT. CM EXPLAINED THAT PT IS MEDICALLY STABLE AND HAS BEEN DISCHARGED. CM OFFERED [facility] LONG TERM INFORMATION, PT REPORTS HAVING IT. PT IS LOOKING FOR A RIDE HOME. CM OFFERED BUS PASS, PT ACCEPTED. PT DENIES FURTHER NEEDS OF CM. BEDSIDE NURSE AWARE. CM LATER ADVISED THAT PT WAS ESCORTED OUT BY SECURITY HE DID NOT WANT TO LEAVE. Grady Keen, CASE MANAGEMENT DCP- Discharge Planning Updated by [id number]: Gayle Hills on 09/22/19 2:[address] Patient Name: DIANE MARCIAL Admission Status: ER Accout number: [id number] Admission Date: 09-19-2019 : 1960 Admission Diagnosis: Attending: ASHKAN, Current LOS: 3 Anticipated DC Date: Planned Disposition: Primary Insurance: [employer] ADV Discharge Planning Comments: CM met with patient to complete initial dc planning assessment. CM educated patient on the CM role and verbal consent given by patient to complete assessment. CM verified patient's address, phone number, and emergency contact phone numbers. Patient lives at home in a camper at his son's house. States his living conditions are poor. Provided patient with information for [facility], and [facility]. Patient states he has attempted both places and was unsuccessful. States At discharge patient plans to return to his camper, until he can find other living arrangements. CM discussed availability of home health, rehab services, and medical equipment. Patient denied known discharge needs at this time. Transportation provider at discharge will be patient son. CM will continue to follow and will assist as needed with dc plans/needs. IMM delivered, explained, signed by the patient, and placed in his chart. Signed form also left with patient. Grinder Set Up Operator Surface: Gayle Hills MSN,CM DCPIA - Discharge Planning Initial Assessment Updated by [email or web address]: Gayle Hills on 09/22/19 3:29 pm * Is the patient Alert and Oriented? Yes * How many steps to enter\exit or inside your home? 4/0 * PCP UNKNOWN * Pharmacy UNKNOWN * Preadmission Environment Home with Family * ADLs Independent * Equipment Cane * List name and contact numbers for known caregivers / representatives who currently or will assist patient after discharge: PATIENT STATES HE HAS KNOWN ONE TO ASSIST HIM AT DISCHARGE * Verbal permission to speak to the caregivers and representatives has been obtained from the patient. Yes * Community resources currently utilized None * Additional services required to return to the preadmission environment? No * Can the patient safely return to the preadmission environment? Yes * Has this patient been hospitalized within the prior 30 days at any hospital? No Coverage Notice Reviewer: [id number] - Gayle Hills Notice Issued Date-Time: 09/22/2019 15:20 Notice Type: IM Discharge Notice Notice Delivered To: Patient Relationship to Patient: Derrick Boat Runner Name: Delivery Method: HAND - Hand Delivered Yesica Days: Prior Verbal Notification: Recipient Understood Notice: Yes Recipient Signature: Yes Med Rec Note Co-signed by Attending: Coverage Notice Comment: Last DP export: 09/22/19 2:37 p Patient Name: AGGIE, LUSHIAN Page [phone] at 0844 All edits/amendments must be made on the electronic document DICTATION DATE: 09/24/19842 QUALITY NURSE: BOB 09/24/19862 RPT#: [id number] DC DATE:09/23/19 STATUS: DIS IN [facility] [address] [facility] [place] [address] END OF REPORT
== END 2019-09-23 14:29 | disposition home or self-care (01) | DRG 871 ==
LOC: D.ER 22:05 → D.M2 23:00
PROVIDERS: Family Medicine; Internal Medicine Nephrology; ADMIT Family Medicine; ATTEND Family Medicine
DX: A41.9 Sepsis, unspecified organism (principal); J18.9 Pneumonia, unspecified organism; J96.01 Acute respiratory failure with hypoxia; J44.1 Chronic obstructive pulmonary disease with (acute) exacerbation; J44.0 Chronic obstructive pulmonary disease with (acute) lower respiratory infection; F17.213 Nicotine dependence, cigarettes, with withdrawal; E87.1 Hypo-osmolality and hyponatremia; N17.9 Acute kidney failure, unspecified; F15.90 Other stimulant use, unspecified, uncomplicated; D64.9 Anemia, unspecified; F41.8 Other specified anxiety disorders; F20.9 Schizophrenia, unspecified